=== PATIENT | male | born 1940 | race Caucasian/White ===

== ENCOUNTER → 2016-09-24 | Outpatient (CLI) | payer MEDICARE ==
[~2016-09-24] MED LIST: APIX5TAB PO; ATOR40TA16 PO; CALCTAB80 PO; CARV6.252 PO; FAMO20TA2 PO; FLUT1INH INH; FORT600S SQ; FURO40TA PO; HYDR-3516 PO; ICAPCAP PO; ISOS30TA3 PO; METF1000 PO; NATE120T PO; POTA-163 PO; POTA75TA2 PO; RAMI5CAP PO; TAMS0.4C4 PO; WALKER WHEELS/F1 MIS
[2016-09-24 12:44] LABS: AUTOMATED NEUTROPHIL # 5.7 TH/MM3 (1.8-7.7); BASOPHIL # 0.1 TH/MM3 (0-0.2); BASOPHIL % 0.7 % (0.0-2.0); EOSINOPHIL # 0.1 TH/MM3 (0-0.4); EOSINOPHIL % 1.2 % (0.0-4.0); HEMATOCRIT 43.4 % (39.0-51.0); HEMO FLAGS DIFF FINAL; LYMPH % 16.9 % (9.0-44.0); LYMPHOCYTE # 1.3 TH/MM3 (1.0-4.8); MEAN CELL VOLUME 90.7 FL (80.0-100.0); MEAN CORPUSCULAR HGB CONC 33.1 % (32.0-36.0); MONO % 7.4 % (0.0-8.0); NEUT % 73.8 % (16.0-70.0); PLATELET COUNT 206 TH/MM3 (150-450); RED BLOOD COUNT 4.78 MIL/MM3 (4.50-5.90); RED CELL DISTRIBUTION WIDTH 14.9 % (11.6-17.2); WHITE BLOOD COUNT 7.7 TH/MM3 (4.0-11.0)
[2016-09-24 12:55] LABS: APTT (PATIENT) 28.2 SEC (24.3-30.1); PROTHROMBIN TIME - PATIENT 11.5 SEC (9.8-11.6)
[2016-09-24 13:07] LABS: BLOOD, URINE NEG (NEG); COMMENT (UR) CULT NOT INDICATED; CULTURE IF INDICATED CULT NOT INDICATED; GLUCOSE,URINE NEG (NEG); KETONE, URINE NEG (NEG); NITRITE,URINE NEG (NEG); URINE COLOR YELLOW (YELLW/STRAW)
[2016-09-24 13:21] LABS: ANION GAP 5 MEQ/L (5-15); BICARBONATE 30.1 MEQ/L (21.0-32.0); BLOOD UREA NITROGEN 22 MG/DL (7-18); CHLORIDE 104 MEQ/L (98-107); GLOMERULAR FILTRATION RATE 53 ML/MIN (>89); GLUCOSE,FASTING 146 MG/DL (74-99); POTASSIUM 4.9 MEQ/L (3.5-5.1); SODIUM (NA) 139 MEQ/L (136-145)
--- NOTE | 2016-09-24 13:33 | RADRPT ---
EXAM DATE/TIME: 09/24/2016 12:50 [facility] COMPARISON: No previous studies available for comparison. INDICATIONS : Pre op aortic valve replacement MEDICAL HISTORY : Hypertension. Diabetes mellitus type 2. Aortic valve disorder. A Fib. COPD. Pneumonia. Bilateral kn ee pain. Forehead skin cancer. SURGICAL HISTORY : Circumcision. ENCOUNTER: Initial ACUITY: 1 day PAIN SCORE: 0/10 LOCATION: Bilateral neck. PEAK SYSTOLIC VELOCITIES (cm/sec): ICA/CCA RATIO: Right: 1.2 Left: 1.0 ICA: Right: 59 Left: 62 CCA: Right: 50 Left: 61 ECA: Right: 65 Left: 40 VERTEBRAL: Right: 40 antegrade Left: 31 antegrade Elevated flow velocities and ICA/CCA ratios have been found to correlate with increased degrees of vessel stenosis, calculated as percentage of diameter relative to a normal segment of distal ICA/CCA FINDINGS: RIGHT CAROTID: No significant stenosis is visualized. The waveforms are within normal limits. LEFT CAROTID: No significant stenosis is visualized. The waveforms are within normal limits. VERTEBRAL ARTERIES: Antegrade flow is seen in both vertebral arteries. MISCELLANEOUS: None. CONCLUSION: Normal examination. Owen Tomlin MD on September 24, 2016 at 13:31 Board Certified Radiologist. This report was verified electronically.
--- NOTE | 2016-09-24 13:34 | RADRPT ---
EXAM DATE/TIME: 09/24/2016 13:19 [facility] COMPARISON: No previous studies available for comparison. INDICATIONS : Pre op. To evaluate for pneumonia, pneumothorax, or any comminicable disease. MEDICAL HISTORY : None. SURGICAL HISTORY : None. ENCOUNTER: Initial ACUITY: 1 day PAIN SCORE: 0/10 LOCATION: Bilateral chest FINDINGS: Diffuse bilateral interstitial infiltrates with mild probable pleural parenchymal scarring most notab ly in the left lung base. Possible tiny effusions. Heart size and mediastinal contours are grossly sa tisfactory. There is moderate accentuation of thoracic kyphosis with scoliosis and degenerative pierre es present in the spine. CONCLUSION: Diffuse interstitial infiltrates of undetermined chronicity Owen Tomlin MD on September 24, 2016 at 13:32 Board Certified Radiologist. This report was verified electronically.
[2016-09-24 14:17] LABS: MRSA PCR NEGATIVE (NEGATIVE); STAPH AUREUS PCR NEGATIVE (NEGATIVE)
[2016-09-24 15:39] LABS: HEMOGLOBIN A1b 2.3 %; HEMOGLOBIN Ao 82.1 %; HEMOGLOBIN LA1C 2.8 %; HEMOGLOBIN P3 6.3 %
--- NOTE | 2016-09-30 09:08 | RSPPFT ---
DATE OF PROCEDURE: 09/24/16 COMMENTS: Spirometry with FVC of 3/3, FEV1 of 2.0, FEV1/FVC ratio at 62%. Post-bronchodilator study was not performed. IMPRESSION: 1. Moderate airways obstruction.
== END ==
LOC: CPRE 11:01
PROVIDERS: ATTEND Thoracic Surgery (Cardiothoracic Vascular Surgery)
DX: Z01.810 Encounter for preprocedural cardiovascular examination (principal); Z01.812 Encounter for preprocedural laboratory examination; Z01.811 Encounter for preprocedural respiratory examination; I35.0 Nonrheumatic aortic (valve) stenosis; I50.43 Acute on chronic combined systolic (congestive) and diastolic (congestive) heart failure; E11.9 Type 2 diabetes mellitus without complications
CPT/HCPCS: 36415; 71020; 80048; 81001; 83036; 85025; 85610; 85730; 87640; 87641; 93880; 94010

== ENCOUNTER 2016-09-28 15:48 | Inpatient (IN) | payer MEDICARE ==
[~2016-09-28] VITALS: Ht 177.8 cm; Wt 76.0 kg
[~2016-09-28 15:48] MED LIST changes: -HYDR-3516 PO; -WALKER WHEELS/F1 MIS
[2016-09-29] VITALS (10 sets, daily range): BP systolic 87–153; BP diastolic 59–83; PULSE 79–89; RESP 10–20; TEMP 97.7–97.9; O2SAT 91–100
[2016-09-29] MEDS ORDERED: AMINOCAPROIC ACID INJ 250 MG/ML 20 ML VIAL IV ONE ×2 (05:00→14:14)
[2016-09-29] MEDS ORDERED: HEPARIN SODIUM - SQ 10,000 UNITS/ML VIAL SQ ONE (05:00)
[2016-09-29] MEDS ORDERED: PROTAMINE SULFATE 250 MG/25 ML VIAL IV ONE (05:00)
[2016-09-29] MEDS ORDERED: PHENYLEPHRINE HCL 10 MG/ML VIAL IV ONE (05:00)
[2016-09-29] MEDS ORDERED: DEXMEDETOMIDINE INJ 50 ML IV ONE (05:00)
[2016-09-29] MEDS ORDERED: GLYCOPYRROLATE 0.2 MG/ML VIAL IV ONE (05:00)
[2016-09-29] MEDS ORDERED: ceFAZolin INJ 1,000 MG VIAL IV ONE ×2 (05:00→11:30)
[2016-09-29] MEDS ORDERED: VECURONIUM BROMIDE 10 MG VIAL IV ONE (05:00)
[2016-09-29] MEDS ORDERED: MAGNESIUM SULFATE 1000 MG/2 ML VIAL (PED) IV ONE (05:00)
[2016-09-29] MEDS ORDERED: CEFAZOLIN 500 MG in NS IRR BTL 500 ML IRRIGATION SCH (06:15)
[2016-09-29] MEDS ORDERED: CHLORHEXIDINE GLUCONATE 4% SOLN 120 ML BTL TOPICAL SCH (06:15)
[2016-09-29] MEDS ORDERED: METOPROLOL TARTRATE 25 MG TAB PO PRN (06:15)
[2016-09-29] MEDS ORDERED: INSULIN HUMAN REGULAR 1,000 UNITS/10 ML VIAL SQ PRN (06:15)
[2016-09-29] MEDS ORDERED: SODIUM CHLORIDE 0.9% FLUSH 5 ML FLUSH IV FLUSH PRN ×2 (06:15→12:45)
[2016-09-29] MEDS ORDERED: METOPROLOL TARTRATE 25 MG TAB PO SCH (06:15)
[2016-09-29] MEDS ORDERED: INSULIN REGULAR 100 UNITS in NS 100 ML IV SCH (06:15)
[2016-09-29] MEDS ORDERED: ceFAZolin 2 GM PREMIX 50 ML IV SCH (06:15)
[2016-09-29] MEDS ORDERED: methylPREDNISolone SOD SUCC 125 MG/2 ML VIAL ONE (06:20)
[2016-09-29] MEDS ORDERED: VANCOMYCIN HCL 1000 MG VIAL ONE (06:20)
[2016-09-29] MEDS ORDERED: HEPARIN SODIUM - SQ 10,000 UNITS/ML VIAL ONE (06:20)
[2016-09-29] MEDS ORDERED: BUPIVACAINE HCL PF 0.5% 30 ML VIAL ONE (06:20)
[2016-09-29] MEDS ORDERED: ICAPCAP PO (06:23)
[2016-09-29] MEDS: LACTATED RINGER'S 1000 ML IV SCH (06:34)
[2016-09-29] MEDS ORDERED: METOPROLOL TARTRATE 25 MG TAB PO ONE (07:00)
[2016-09-29] MEDS ORDERED: CUSTODIOL HTK IRR SOLN 2,000 ML ONE (07:03)
[2016-09-29] MEDS ORDERED: CUSTODIOL HTK IRR SOLN 1,000 ML ONE (07:03)
[2016-09-29] MEDS ORDERED: CALCIUM CHLORIDE 10% SOLN 1 GRAM/10 ML SYR ONE (07:04)
[2016-09-29] MEDS ORDERED: HEPARIN SODIUM - IV 10,000 UNITS/10 ML VIAL ONE (07:04)
[2016-09-29] MEDS ORDERED: POTASSIUM CHLORIDE 20 MEQ/10 ML VIAL ONE (07:04)
[2016-09-29] MEDS ORDERED: SODIUM BICARBONATE 8.4% INJ 50 ML ONE (07:05)
[2016-09-29] MEDS ORDERED: MANNITOL INJ 50 ML ONE (07:05)
[2016-09-29] MEDS ORDERED: ALBUMIN HUMAN 25% 12.5 GM/50 ML BAGP IV ONE (07:05)
[2016-09-29] MEDS: SODIUM CHLORID 0.9% 500 ML IV SCH (07:30)
[2016-09-29] MEDS ORDERED: SODIUM CHLORIDE 0.9% FLUSH 5 ML FLUSH IV FLUSH SCH (09:00)
[2016-09-29] MEDS ORDERED: INSULIN REGULAR (IV INFUSION) 100 UNITS in SODIUM CHLORIDE 0.9% INJ 99 ML IV SCH (12:45)
[2016-09-29] MEDS ORDERED: DEXTROSE 50% IN WATER 50 ML VIAL(D50) IV PUSH PRN (12:45)
[2016-09-29] MEDS ORDERED: ONDANSETRON HCL 4 MG/2 ML VIAL IV PUSH PRN (12:45)
[2016-09-29] MEDS ORDERED: CALCIUM CHLORIDE 10% 1 GRAM/10 ML VIAL IV PRN (12:45)
[2016-09-29] MEDS ORDERED: hydrALAZINE HCL 20 MG/ML VIAL IV PRN (12:45)
[2016-09-29] MEDS ORDERED: CLEVIDIPINE INJ 50 ML IV SCH (12:45)
[2016-09-29] MEDS ORDERED: LACTATED RINGER'S 1000 ML INJ 500 ML IV PRN (12:45)
[2016-09-29] MEDS ORDERED: POTASSIUM CHLOR 20 MEQ PREMIX 100 ML IV PRN ×3 (12:45)
[2016-09-29] MEDS ORDERED: ACETAMINOPHEN 650 MG SUPP RECTAL PRN (12:45)
[2016-09-29] MEDS ORDERED: METOPROLOL TARTRATE 5 MG/5 ML VIAL IV PUSH PRN (12:45)
[2016-09-29] MEDS ORDERED: ACETAMINOPHEN 325 MG TAB PO PRN (12:45)
[2016-09-29] MEDS ORDERED: Post-op Orders (for Pharmacy) MISC OTHER ONE (12:45)
[2016-09-29] MEDS ORDERED: MAGNESIUM SULFATE INJ 2 GM in SODIUM CHLORIDE 0.9% INJ 100 ML IV PRN (12:45)
[2016-09-29] MEDS ORDERED: POTASSIUM CHLORIDE 20 MEQ CONTROLLED RELEASE TAB PO PRN ×2 (12:45)
[2016-09-29] MEDS ORDERED: CALCIUM CHLORIDE INJ 1 GM in SODIUM CHLORIDE 0.9% INJ 100 ML IV PRN (12:45)
[2016-09-29] MEDS ORDERED: MIDAZOLAM HCL 5 MG/5 ML VIAL ONE (12:51)
--- NOTE | 2016-09-29 12:51 | PD.OP ---
cc: Jos Garcia MD; Peggy Jackson MD Operative Report Date of Surgery: Sep 29, 2016 Preoperative Diagnosis: (1) Aortic valve stenosis with insufficiency (2) Diastolic CHF due to valvular disease Postoperative Diagnosis: same Procedure: Minimally invasive AVR with a 23 Trifecta tissue valve Left fem-fem cannulation for CPB MARIYA Anesthesia: Dr. Grady Surgeon: Peggy Jackson Director Technical(s): Gaurav Thornton MD Operation and Findings: The risks, benefits, complications, treatment options, and expected outcomes were discussed with the patient. The possibilities of reaction to medication, pulmonary aspiration, perforation of viscus, bleeding, recurrent infection, the need for additional procedures, failure to diagnose a condition, and creating a complication requiring transfusion or operation were discussed with the patient. The patient concurred with the proposed plan, giving informed consent. The site of surgery properly noted/marked. The patient was taken to Operating Room, identified as Arron Rollins, and the procedure verified as Minimally Invasive Aortic Valve Replacement. A Time Out was held and the above information confirmed. Standard monitoring lines and Carrion catheter were placed. General anesthesia was induced. The patient was prepped and draped in a sterile fashion. A 3 cm incision was performed in the left groin and the femoral artery and vein were exposed. The patient was heparinized for cardiopulmonary bypass. The left femoral artery was cannulated with a 17 [employer] arterial cannula. The left femoral vein was cannulated with a 23 [employer] cannula under MARIYA guidance. A 6 cm right anterior thoracotomy was performed and the 3rd rib was shingled. The right internal mammary artery and vein were ligated and divided. An Merlin retractor was placed followed by a small chest retractor. The pericardium was opened and a pericardial sling was created using interrupted 0 silk sutures. A small 1 cm incision was made at the 6th intercostal space and an LV vent and pericardial suction were placed through this access port. The aorta was dissected posteriorly for crossclamp placement. Antegrade Custodiol cardioplegia were employed. Additionally, hand-held coronary cardioplegia cannula was used during the procedure. The patient was placed on cardiopulmonary bypass. An aortic cross-clamp was applied and the heart was arrested using cold blood cardioplegia delivered through a 14F catheter. The aorta was opened above the sinotubular ridge and the aortic valve was exposed. The right and left coronary was directly cannulated in addition and cardioplegia was administered. On opening the aorta, the valve appeared rheumatic with calcified, retracted cusps. The valve was resected as well as all annular calcification, sized for a 23 mm Trifecta tissue valve which was placed with 2-0 pledgeted Tycron valve sutures. The valve seated well. The aorta was closed with running 4-0 Prolene suture. The patient systemically Re warmed and received a hotshot dose of warm blood cardioplegia. The heart was vigorously deaired with a clamp on. The clamp was removed, deairing continued. The patient was easily weaned from cardiopulmonary bypass. Decannulation was carried out without incident and both the femoral vessels were repaired with 5-0 prolene suture. Protamine was given. There was no adverse reaction. Intraoperative MARIYA following the procedure showed a well-seated aortic valve with no perivalvular leak and preserved ventricular function. Wound was checked for hemostasis was obtained using electrocautery. 2-24 Kyrgyz Inocencio drains were positioned in the pericardium and right pleural space respectively and secured with 2-0 silk sutures. The 3rd rib was reapproximated to the sternum and adjacent rib with a 0 Vicryl suture. The fascia and pectoralis were closed with 0 Vicryl. The subcutaneous tissue was closed using a running 3-0 Monocryl suture. The skin was closed with 4-0 Monocryl. The groin was closed in 2 layers. Sterile dressings were placed. At the end of the operation, all sponge, instruments, and needle counts were correct. The patient was transferred to the CVICU in stable condition. Peggy Jackson MD Sep 29, 2016 12:51
[2016-09-29] MEDS ORDERED: fentaNYL CITRATE 1000 MCG/20 ML VIAL ONE (12:52)
[2016-09-29] MEDS ORDERED: RESP: ALBUTEROL 2.5 MG/IPRATROPIUM 0.5 MG NEB (PRN) NEB (13:30)
[2016-09-29] MEDS ORDERED: RESP: RACEPINEPHRINE 2.25% 0.5 ML NEB NEB PRN (13:30)
--- NOTE | 2016-09-29 13:34 | RADRPT ---
EXAM DATE/TIME: 09/29/2016 12:52 [facility] COMPARISON: CHEST PA & LAT, September 24, 2016, 13:19. INDICATIONS : Post Heart valve surgery. MEDICAL HISTORY : None. SURGICAL HISTORY : None. ENCOUNTER: Initial ACUITY: 2 days PAIN SCORE: Non-responsive. LOCATION: Bilateral chest FINDINGS: The cardiac silhouette is enlarged in transverse diameter. There is left lower lobe atelectasis versu s pneumonia. Support lines and tubes are in satisfactory position. There is no evidence of pneumotho rax. CONCLUSION: 1. Left lower lobe atelectasis versus pneumonia. There is no evidence of pneumothorax. Avery Carey MD on September 29, 2016 at 13:32 Board Certified Radiologist. This report was verified electronically.
[2016-09-29] MEDS ORDERED: SODIUM CHLOR 0.9% 250 ML INJ 250 ML IV ONE (14:14)
[2016-09-29] MEDS ORDERED: SODIUM CHLORIDE 0.9% INJ 100 ML IV ONE (14:14)
[2016-09-29] MEDS ORDERED: SODIUM CHLOR 0.9% 1000 ML INJ 1,000 ML IV ONE (14:14)
[2016-09-29] MEDS ORDERED: NORMOSOL R INJ 1,000 ML IV ONE (14:14)
[2016-09-29] MEDS: RESP: ALBUTEROL 2.5 MG/IPRATROPIUM 0.5 MG NEB (SCH) NEB ×2 (15:16→21:03)
[2016-09-29] MEDS: ACETAMINOPHEN 1000 MG/100 ML VIAL IV SCH ×2 (15:53→20:22)
[2016-09-29] MEDS: AMIODARONE 200 MG TAB PO SCH ×2 (15:53→21:59)
[2016-09-29] MEDS ORDERED: MUPIROCIN 2% OINT 1 APPLIC/GM SYR ONE (20:16)
[2016-09-29] MEDS: MUPIROCIN 2% OINT 22 GM TUBE EACH NARE SCH (21:00)
[2016-09-29] MEDS: SODIUM CHLORIDE 0.9% FLUSH 5 ML FLUSH IV FLUSH SCH (21:59)
[2016-09-29] MEDS: TAMSULOSIN HCL 0.4 MG CAP PO SCH (21:59)
[2016-09-29] MEDS: ATORVASTATIN 40 MG TAB PO SCH (21:59)
[2016-09-30] VITALS (14 sets, daily range): BP systolic 125–157; BP diastolic 60–91; PULSE 69–92; RESP 18–22; TEMP 97.1–99.1; O2SAT 92–99
[2016-09-30] MEDS: SODIUM CHLORID 0.9% 500 ML IV SCH (00:10)
[2016-09-30] MEDS: oxyCODONE/ACETAMINOPHEN 5 MG/325 MG TAB PO PRN ×2 (02:16→08:48)
[2016-09-30] MEDS: ACETAMINOPHEN 1000 MG/100 ML VIAL IV SCH ×2 (02:17→08:00)
[2016-09-30] MEDS: RESP: ALBUTEROL 2.5 MG/IPRATROPIUM 0.5 MG NEB (SCH) NEB ×4 (02:28→21:13)
[2016-09-30 04:28] LABS: HEMATOCRIT 40.8 % (39.0-51.0); MEAN CELL VOLUME 89.9 FL (80.0-100.0); MEAN CORPUSCULAR HEMOGLOBIN 29.5 PG (27.0-34.0); MEAN CORPUSCULAR HGB CONC 32.8 % (32.0-36.0); PLATELET COUNT 99 TH/MM3 (150-450); RED BLOOD COUNT 4.54 MIL/MM3 (4.50-5.90); RED CELL DISTRIBUTION WIDTH 14.9 % (11.6-17.2); WHITE BLOOD COUNT 17.4 TH/MM3 (4.0-11.0)
[2016-09-30 05:00] LABS: BICARBONATE 22.8 MEQ/L (21.0-32.0); MAGNESIUM 1.6 MG/DL (1.5-2.5); POTASSIUM 4.1 MEQ/L (3.5-5.1)
[2016-09-30] MEDS: PANTOPRAZOLE SOD 40 MG DELAYED RELEASE TAB PO SCH (05:26)
[2016-09-30] MEDS: AMIODARONE 200 MG TAB PO SCH ×3 (05:27→20:54)
[2016-09-30 05:56] LABS: REVIEW FLAG FINAL
--- NOTE | 2016-09-30 06:22 | RADRPT ---
EXAM DATE/TIME: 09/30/2016 04:44 [facility] COMPARISON: CHEST PA & LAT, September 24, 2016, 13:19. CHEST SINGLE AP, September 29, 2016, 12:52. INDICATIONS : Shortness of breath, possible pulmonary disease. MEDICAL HISTORY : None. SURGICAL HISTORY : None. ENCOUNTER: Subsequent ACUITY: 3 days PAIN SCORE: Non-responsive. LOCATION: Bilateral chest FINDINGS: There has been interval extubation. A left subclavian central catheter remains in place. A right thor acostomy tube is present. There is hazy parenchymal opacity in the left perihilar region and left xavi g base obscuring the left diaphragm. Minimal parenchymal opacity at the right lung base. Cardiac cont ours are grossly stable. CONCLUSION: Interval extubation with slight deterioration in the aeration Owen Tomlin MD on September 30, 2016 at 6:17 Board Certified Radiologist. This report was verified electronically.
[2016-09-30] MEDS: LACTATED RINGER'S 1000 ML IV SCH (07:30)
[2016-09-30] MEDS: ASPIRIN 81 MG CHEW TAB PO SCH ×2 (08:50→09:35)
[2016-09-30] MEDS: MUPIROCIN 2% OINT 22 GM TUBE EACH NARE SCH (08:50)
[2016-09-30] MEDS: FLUTICASONE 100 MCG/VILANTEROL 25 MCG INHALER INH SCH (08:51)
[2016-09-30] MEDS: SODIUM CHLORIDE 0.9% FLUSH 5 ML FLUSH IV FLUSH SCH ×2 (08:51→20:54)
[2016-09-30] MEDS ORDERED: MULTIVITAMINS/MINERALS THERAPEUTIC TAB PO SCH (09:00)
[2016-09-30] MEDS ORDERED: DEXTROSE 50% IN WATER 50 ML VIAL(D50) IV PRN (09:30)
[2016-09-30] MEDS ORDERED: GLUCAGON 1 MG/ML VIAL OTHER PRN (09:30)
[2016-09-30] MEDS ORDERED: BISACODYL EC 5 MG TABEC PO PRN (09:30)
[2016-09-30] MEDS ORDERED: BISACODYL 10 MG SUPP RECTAL PRN (09:30)
[2016-09-30] MEDS ORDERED: SOD PHOSPHATE/SOD BIPHOSPHATE (ADULT) ENEMA 133ML RECTAL PRN (09:30)
--- NOTE | 2016-09-30 09:34 | RADRPT ---
EXAM DATE/TIME: 09/30/2016 08:58 [facility] COMPARISON: CHEST SINGLE AP, September 30, 2016, 4:44. INDICATIONS : Pneumonia. MEDICAL HISTORY : None. SURGICAL HISTORY : heart valve surgery ENCOUNTER: Initial ACUITY: 4 - 6 days PAIN SCORE: 0/10 LOCATION: Bilateral chest FINDINGS: The cardiac silhouette is enlarged in transverse diameter. A left sided subclavian vein catheter is i n place without pneumothorax with its tip in the superior vena cava. A right chest tube is in place w ith its tip directed inferiorly with a right apical pneumothorax without tension. There is subcutaneo us emphysema along the right lateral chest wall. There is bilateral lower lobe atelectasis versus pne umonia. CONCLUSION: 1. Right apical pneumothorax without tension. 2. Bilateral lower lobe atelectasis versus pneumonia. Avery Carey MD on September 30, 2016 at 9:29 Board Certified Radiologist. This report was verified electronically.
[2016-09-30] MEDS: MAGNESIUM SULFATE INJ 2 GM in SODIUM CHLORIDE 0.9% INJ 100 ML IV PRN ×2 (09:35→10:47)
[2016-09-30] MEDS: CARVEDILOL 3.125 MG TAB PO SCH ×2 (09:40→20:54)
[2016-09-30] MEDS: INSULIN ASPART SUPPLEMENTAL SCALE SQ SCH ×4 (10:46→22:00)
[2016-09-30] MEDS ORDERED: traMADol HCL 50 MG TAB PO PRN (11:30)
[2016-09-30] MEDS: MAGNESIUM HYDROXIDE SUSP 30 ML CUP PO PRN (14:20)
--- NOTE | 2016-09-30 15:01 | PD.CAR.PN ---
CVT Progress Note CVT: POD #: 1 Subjective/Hospital Course: 76 male hx of (1) Aortic valve stenosis with insufficiency, (2) Diastolic CHF due to valvular disease, no significant CAD per Heart cath other past medical hx : COPD on inhalers, DM on insulin and oral meds , HTN HLP tobacco abuse, Afib on eliquis at home EF 35-40% surgery: Minimally invasive AVR with a 23 Trifecta tissue valve, Left fem-fem cannulation for CPB, MARIYA 09/29 09/30 extubated post surgery , weaned off insulin gtt no pressors + air leak in +1 / repeat CXR noted has small right apical PTX , sub q emphysema continue chest tube to wall suction ok to transfer to stepdown Objective: GENERAL: SKIN: Warm and dry.incision intact right upper chest wall HEAD: Normocephalic. EYES: No scleral icterus. No injection or drainage. NECK: Supple, trachea midline. No JVD or lymphadenopathy. CARDIOVASCULAR: Regular rate and rhythm without murmurs, gallops, or rubs. RESPIRATORY: chest tube x 2 right upper chest wall in place + air leak / drained 200cc/ 12 hrs Breath sounds equal bilaterally. No accessory muscle use. GASTROINTESTINAL: Abdomen soft, non-tender, nondistended. MUSCULOSKELETAL: No cyanosis, or edema. BACK: Nontender without obvious deformity. No CVA tenderness. Vital Signs Date Time Temp Pulse Resp B/P Pulse Ox O2 Delivery O2 Flow Rate FiO2 09/30/16 12:00 94 Nasal Cannula 4.00 09/30/16 11:00 97.9 76 18 133/70 92 Arterial Line 09/30/16 11:00 76 09/30/16 08:00 94 Nasal Cannula 4.00 09/30/16 07:20 97 Venturi Mask 50 09/30/16 07:00 98.6 80 20 125/80 97 138/67 09/30/16 07:00 80 09/30/16 04:00 95 Venturi Mask 6.00 50 09/30/16 04:00 97.1 84 18 126/79 97 140/60 09/30/16 03:28 87 09/30/16 03:00 18 09/30/16 03:00 18 09/30/16 02:00 140/73 157/70 09/30/16 01:00 145/91 151/72 09/30/16 00:00 98.9 80 22 151/68 95 09/30/16 00:00 96 Venturi Mask 6.00 50 09/29/16 23:35 86 09/29/16 20:00 95 Venturi Mask 6.00 50 09/29/16 20:00 97.9 79 20 144/70 95 09/29/16 19:47 95 Venturi Mask 6.00 50 09/29/16 19:30 82 09/29/16 18:15 95 Venturi Mask 6.00 50 09/29/16 16:00 95 Partial Non-Rebreather 6.00 09/29/16 15:00 97.9 89 19 153/83 93 09/29/16 15:00 89 09/29/16 14:46 91 Simple Mask 10.00 Labs: Laboratory Tests Test 09/30/16 04:15 White Blood Count 17.4 TH/MM3 (4.0-11.0) Red Blood Count 4.54 MIL/MM3 (4.50-5.90) Hemoglobin 13.4 GM/DL (13.0-17.0) Hematocrit 40.8 % (39.0-51.0) Mean Corpuscular Volume 89.9 FL (80.0-100.0) Mean Corpuscular Hemoglobin 29.5 PG (27.0-34.0) Mean Corpuscular Hemoglobin 32.8 % Concent (32.0-36.0) Red Cell Distribution Width 14.9 % (11.6-17.2) Platelet Count 99 TH/MM3 (150-450) Mean Platelet Volume 9.3 FL (7.0-11.0) Sodium Level 139 MEQ/L (136-145) Potassium Level 4.1 MEQ/L (3.5-5.1) Chloride Level 104 MEQ/L (98-107) Carbon Dioxide Level 22.8 MEQ/L (21.0-32.0) Anion Gap 12 MEQ/L (5-15) Blood Urea Nitrogen 19 MG/DL (7-18) Creatinine 0.74 MG/DL (0.60-1.30) Estimat Glomerular Filtration 102 ML/MIN Rate (>89) Random Glucose 119 MG/DL (74-106) Calcium Level 7.9 MG/DL (8.5-10.1) Magnesium Level 1.6 MG/DL (1.5-2.5) Result Diagram: 09/30/16 0415 09/30/16 0415 Telemetry: NSR (1) Aortic valve stenosis with insufficiency (2) S/P AVR (aortic valve replacement) Plan: continue low dose ASA start BB continue chest tube to suction resume nusrat in am / EF 35-40% pulm toileting nebs, ezpap acapella (3) Diastolic CHF due to valvular disease Plan: consider low dose diuretic in am (4) Diabetes mellitus Plan: on insulin sliding scale, start metformin in am HGB aic 6.7 (5) Hyperlipemia Plan: statin (6) Hypertension Plan: restart coreg Mini Bacon Sep 30, 2016 15:01
[2016-09-30] MEDS: oxyCODONE/ACETAMINOPHEN 7.5 MG/325 MG TAB PO PRN ×2 (16:52→21:08)
[2016-09-30] MEDS: ATORVASTATIN 40 MG TAB PO SCH (20:54)
[2016-09-30] MEDS: TAMSULOSIN HCL 0.4 MG CAP PO SCH (20:54)
--- NOTE | 2016-09-30 20:59 | EKG ---
Date Performed: 09/30/2016 Time Performed: 02:41:30 PTAGE: 76 years EKG: Sinus rhythm with PAC(s) Anterolateral T wave changes are nonspecific Borderline ECG NO PREVIOUS TRACING DOCTOR: Jos Garcia Interpretating Date/Time 09/30/2016 20:56:43
[2016-10-01] VITALS (19 sets, daily range): BP systolic 93–137; BP diastolic 60–79; PULSE 65–93; RESP 16–18; TEMP 97–99.1; O2SAT 88–96
[2016-10-01] MEDS: INSULIN ASPART SUPPLEMENTAL SCALE SQ SCH ×5 (04:00→22:09)
[2016-10-01 05:11] LABS: AUTOMATED NEUTROPHIL # 11.5 TH/MM3 (1.8-7.7); BASOPHIL % 0.4 % (0.0-2.0); EOSINOPHIL % 0.2 % (0.0-4.0); HEMATOCRIT 39.6 % (39.0-51.0); LYMPH % 6.3 % (9.0-44.0); LYMPHOCYTE # 0.8 TH/MM3 (1.0-4.8); MEAN CELL VOLUME 90.4 FL (80.0-100.0); MEAN CORPUSCULAR HEMOGLOBIN 29.8 PG (27.0-34.0); MEAN CORPUSCULAR HGB CONC 32.9 % (32.0-36.0); NEUT % 85.1 % (16.0-70.0); PLATELET COUNT 88 TH/MM3 (150-450); RED BLOOD COUNT 4.38 MIL/MM3 (4.50-5.90); RED CELL DISTRIBUTION WIDTH 15.1 % (11.6-17.2); WHITE BLOOD COUNT 13.5 TH/MM3 (4.0-11.0)
[2016-10-01 05:16] LABS: BICARBONATE 29.1 MEQ/L (21.0-32.0); MAGNESIUM 1.9 MG/DL (1.5-2.5); POTASSIUM 4.7 MEQ/L (3.5-5.1)
[2016-10-01 05:23] LABS: HEMO FLAGS AUTO DIFF
[2016-10-01] MEDS: PANTOPRAZOLE SOD 40 MG DELAYED RELEASE TAB PO SCH (06:39)
[2016-10-01] MEDS: AMIODARONE 200 MG TAB PO SCH ×3 (06:39→22:05)
[2016-10-01] MEDS: oxyCODONE/ACETAMINOPHEN 7.5 MG/325 MG TAB PO PRN ×2 (06:39→13:27)
--- NOTE | 2016-10-01 06:54 | RADRPT ---
EXAM DATE/TIME: 10/01/2016 05:02 [facility] COMPARISON: CHEST SINGLE AP, September 30, 2016, 8:58. INDICATIONS : Evaluate for pneumothorax. MEDICAL HISTORY : None. SURGICAL HISTORY : None. ENCOUNTER: Subsequent ACUITY: 1 week PAIN SCORE: Non-responsive. LOCATION: Bilateral chest FINDINGS: Left subclavian line is present with tip overlapping the expected region of the SVC. Extensive subcut aneous emphysema is seen on the right and increased since the prior study. Approximate 1.5 cm right a pical pneumothorax seen. Focal consolidation is not seen. Slight bibasilar atelectasis is seen. CONCLUSION: Small right apical pneumothorax. Pat Howell MD on October 01, 2016 at 6:50 Board Certified Radiologist. This report was verified electronically.
[2016-10-01 07:18] LABS: ACANTHOCYTES OCC (NORMAL); PLATELET ESTIMATE SMEAR LOW (NORMAL); PLATELET MORPHOLOGY NORMAL (NORMAL); SCAN/DIFF AUTO DIFF CONFIRMED
[2016-10-01] MEDS: LACTATED RINGER'S 1000 ML IV SCH (07:30)
[2016-10-01] MEDS: RESP: ALBUTEROL 2.5 MG/IPRATROPIUM 0.5 MG NEB (SCH) NEB ×3 (07:45→20:07)
[2016-10-01] MEDS: POLYETHYLENE GLYCOL 17 GM PKG PO SCH (08:40)
[2016-10-01] MEDS: metFORMIN HCL 500 MG TAB PO SCH ×2 (08:40→22:09)
[2016-10-01] MEDS: FLUTICASONE 100 MCG/VILANTEROL 25 MCG INHALER INH SCH (08:40)
[2016-10-01] MEDS: ASPIRIN 81 MG CHEW TAB PO SCH (08:41)
[2016-10-01] MEDS: MULTIVITAMINS/MINERALS THERAPEUTIC TAB PO SCH (08:41)
[2016-10-01] MEDS: DOCUSATE SODIUM 100 MG CAP PO SCH ×2 (08:41→21:00)
[2016-10-01] MEDS: CARVEDILOL 3.125 MG TAB PO SCH ×2 (08:41→22:04)
[2016-10-01] MEDS: SODIUM CHLORIDE 0.9% FLUSH 5 ML FLUSH IV FLUSH SCH ×2 (08:42→22:05)
--- NOTE | 2016-10-01 10:07 | PD.CAR.PN ---
CVT Progress Note CVT: POD #: 2 Subjective/Hospital Course: 76 male hx of (1) Aortic valve stenosis with insufficiency, (2) Diastolic CHF due to valvular disease, no significant CAD per Heart cath other past medical hx : COPD on inhalers, DM on insulin and oral meds , HTN HLP tobacco abuse, Afib on eliquis at home EF 35-40% surgery: Minimally invasive AVR with a 23 Trifecta tissue valve, Left fem-fem cannulation for CPB, MARIYA 09/29 09/30 extubated post surgery , weaned off insulin gtt no pressors + air leak in +1 / repeat CXR noted has small right apical PTX , sub q emphysema continue chest tube to wall suction ok to transfer to stepdown 10/01 still has + 1 air leak on suction , cxr small 1.5cm right apical PTX now on 4 liters nasal cannula remains in NSR with PAC's pain controlled Objective: Vital Signs Date Time Temp Pulse Resp B/P Pulse Ox O2 Delivery O2 Flow Rate FiO2 10/01/16 08:00 95 Venturi Mask 6.00 10/01/16 07:49 95 Venturi Mask 50 10/01/16 07:00 98.5 93 18 115/74 90 10/01/16 07:00 93 10/01/16 06:00 83 10/01/16 05:00 81 10/01/16 05:00 95 Venturi Mask 6.00 10/01/16 04:40 94 Venturi Mask 6.00 Nasal Cannula 10/01/16 04:35 90 Nasal Cannula 6.00 10/01/16 04:30 88 Nasal Cannula 2.00 10/01/16 04:00 82 10/01/16 04:00 99.1 81 18 135/79 88 10/01/16 03:00 78 10/01/16 02:00 82 10/01/16 01:00 74 10/01/16 00:00 98.2 80 18 137/77 94 10/01/16 00:00 80 10/01/16 00:00 94 Nasal Cannula 2.00 09/30/16 23:00 73 09/30/16 22:05 18 09/30/16 22:00 73 09/30/16 21:13 Nasal Cannula 3.00 09/30/16 21:00 92 09/30/16 20:00 80 09/30/16 20:00 99.1 80 18 131/82 95 09/30/16 19:00 82 09/30/16 16:00 94 Nasal Cannula 4.00 09/30/16 15:00 98.0 69 18 144/86 99 09/30/16 15:00 69 09/30/16 12:00 94 Nasal Cannula 4.00 09/30/16 11:00 97.9 76 18 133/70 92 Arterial Line 09/30/16 11:00 76 Labs: Laboratory Tests Test 10/01/16 04:35 White Blood Count 13.5 TH/MM3 (4.0-11.0) Red Blood Count 4.38 MIL/MM3 (4.50-5.90) Hemoglobin 13.0 GM/DL (13.0-17.0) Hematocrit 39.6 % (39.0-51.0) Mean Corpuscular Volume 90.4 FL (80.0-100.0) Mean Corpuscular Hemoglobin 29.8 PG (27.0-34.0) Mean Corpuscular Hemoglobin 32.9 % Concent (32.0-36.0) Red Cell Distribution Width 15.1 % (11.6-17.2) Platelet Count 88 TH/MM3 (150-450) Mean Platelet Volume 9.5 FL (7.0-11.0) Neutrophils (%) (Auto) 85.1 % (16.0-70.0) Lymphocytes (%) (Auto) 6.3 % (9.0-44.0) Monocytes (%) (Auto) 8.0 % (0.0-8.0) Eosinophils (%) (Auto) 0.2 % (0.0-4.0) Basophils (%) (Auto) 0.4 % (0.0-2.0) Neutrophils # (Auto) 11.5 TH/MM3 (1.8-7.7) Lymphocytes # (Auto) 0.8 TH/MM3 (1.0-4.8) Monocytes # (Auto) 1.1 TH/MM3 (0-0.9) Eosinophils # (Auto) 0.0 TH/MM3 (0-0.4) Basophils # (Auto) 0.0 TH/MM3 (0-0.2) CBC Comment AUTO DIFF Differential Comment AUTO DIFF CONFIRMED Platelet Estimate LOW (NORMAL) Platelet Morphology Comment NORMAL (NORMAL) Acanthocytes OCC (NORMAL) Sodium Level 138 MEQ/L (136-145) Potassium Level 4.7 MEQ/L (3.5-5.1) Chloride Level 103 MEQ/L (98-107) Carbon Dioxide Level 29.1 MEQ/L (21.0-32.0) Anion Gap 6 MEQ/L (5-15) Blood Urea Nitrogen 21 MG/DL (7-18) Creatinine 0.85 MG/DL (0.60-1.30) Estimat Glomerular Filtration 87 ML/MIN (>89) Rate Random Glucose 124 MG/DL (74-106) Calcium Level 7.8 MG/DL (8.5-10.1) Magnesium Level 1.9 MG/DL (1.5-2.5) Result Diagram: 10/01/1643410/01/16434 Telemetry: NSR with PAC's (1) Aortic valve stenosis with insufficiency (2) S/P AVR (aortic valve replacement) Plan: continue low dose ASA start BB continue chest tube to suction recheck CXR in am resume nusrat in am / EF 35-40% pulm toileting nebs, ezpap acapella (3) Diastolic CHF due to valvular disease Plan: consider low dose diuretic in am (4) Diabetes mellitus Plan: on insulin sliding scale, metformin HGB aic 6.7 (5) Hyperlipemia Plan: statin (6) Hypertension Plan: coreg (7) hx afib Plan: restart eliquis when chest tube out Mini Bacon Oct 01, 2016 10:07
--- NOTE | 2016-10-01 10:12 | HHI.FF ---
Face to Face Verification Diagnosis: (1) Aortic valve stenosis with insufficiency (2) S/P AVR (aortic valve replacement) (3) Diastolic CHF due to valvular disease (4) hx afib (5) Hypertension (6) Hyperlipemia (7) Diabetes mellitus Home Health Nursing Order: Signs/symptoms of disease process Wound care and dressing changes Nursing assessment with vital signs Instructions: Heart and Vascular Surgery patients *Special attention to sternal dressing Mandatory frequency Assess and evaluation, 4 days in a row The next week 3X week 2 times a week for 4 weeks 1 time a week for 5 weeks Schedule Heart and Vascular patients for full 60 day certification period Initial visit Review Open Heart Surgery Discharge Instructions (Sternal precautions, Activity, Elastic hose, Incision care, Driving, Incentive spirometry, Smoking, [place], Work and other) Need Betadine to paint incision Medication reconciliation Importance of follow up care/ check on appointments Make calendar record temperature daily When to call [facility] nurse, review instructions, phone list Incentive Spirometry, demonstration Visit 1- Begin discharge instruction for patient family and/ or caregiver using teach back method- Signs and symptoms of infection Disease characteristics Medicines and side effects Foods and nutrition/ appetite Infection control/ hand washing/ hygiene Visit 2- Continue teaching Discharge instructions- include additional information on smoking cessation , sternal dressing (sternal vac) Visit 3- Continue teaching- Cough and deep breathing, incision monitoring. Choose my plate Visit 4- Continue teaching- Discuss limitations Discuss how they are feeling Discuss progress toward goals Remaining visits- continue teaching and monitoring Incentive spirometry Q1 hr x 10, while awake, also use acapella device hourly whole awake Sternal Breast Bone Precautions: NO pushing or pulling, ( pt must use sternal pillow to support chest with all activities and with coughing ( takes up to 3 months breast bone to heal ) All females to wear sternal bra , launder as needed Daily incision care: ok to shower daily, no tub bath. Wash all incisions with liquid dial soap, clean wash cloth to each site, rinse and pat dry. Observe for any signs of infection, such as drainage which is dark yellow, aleman, green or foul smelling. Immediately report to the surgeon any drainage from the chest incision, or legs, and for any abnormal drainage from the chest tube sites. Notify surgeon if any temp >101.5 degrees F. When specialty dressing removed/ or if you do not have one, continue to shower daily as above, then rinse and pat incision dry and paint with betadine daily x 5 days. Allow steri strips to fall off if you have any. Avoid lotions, creams, salves, oils, etc. for the first month Please see attached forms for additional instructions regarding post Open Heart specialty wound vacuum dressings. PARISH or Prevena , Dressing to be removed by Nursing staff on For Dr. Jackson patients , please obtain CBC, BMP, PA & Lat CXR in 2 weeks, results to Dr. Jackson ( prescription will be given) ( ) (Tele: [phone]) , Valve replacement pts will need 2decho in 2 weeks with results to Dr. Jackson . Please obtain 2 d echo at your cigarette making machine operator office if possible F/U appointment: as per DC instructions: PCP in 2 weeks, CV surgeon 2 weeks, Chemistry Instructor 3-4 weeks For any questions regarding incisions/ dressing / meds / post op care or above Symptoms, Tuesday 8am-5pm Heart & Vascular Surgery Office ( Dr. Thornton & Dr. Jackson), After Hours / Nights (5pm -8am) Weekends and Holidays Please call [facility] Card[facility] ([facility]) Charge Nurse I have seen patient Arron Rollins on 10/01/16. My clinical findings support the need for the requested home health care services because: Patient has SOB Deconditioned w/ increased weakness I certify that my clinical findings support that this patient is homebound because: Post-op weakness Mini Bacon Oct 01, 2016 10:12
[2016-10-01] MEDS: MAGNESIUM HYDROXIDE SUSP 30 ML CUP PO PRN (18:42)
[2016-10-01] MEDS: TAMSULOSIN HCL 0.4 MG CAP PO SCH (21:00)
[2016-10-01] MEDS: ATORVASTATIN 40 MG TAB PO SCH (22:04)
[2016-10-02] VITALS (20 sets, daily range): BP systolic 90–151; BP diastolic 51–67; PULSE 55–87; RESP 18–20; TEMP 97.2–98.2; O2SAT 90–97
--- NOTE | 2016-10-02 04:00 | RADRPT ---
EXAM DATE/TIME: 10/02/2016 02:53 [facility] COMPARISON: CHEST PA & LAT, September 24, 2016, 13:19. CHEST SINGLE AP, October 01, 2016, 5:02. INDICATIONS : Shortness of breath, possible pulmonary disease. MEDICAL HISTORY : Hypertension. Diabetes mellitus type II. Chronic obstructive pulmonary disease. A-Fib SURGICAL HISTORY : None. ENCOUNTER: Subsequent ACUITY: 1 week PAIN SCORE: Non-responsive. LOCATION: Bilateral chest FINDINGS: Left subclavian catheter tip remains projected at the origin of the superior vena cava. Persistent d iffuse subcutaneous emphysema about the supraclavicular and right lateral chest wall. No focal infil trates seen in either lung. Right suprahilar opacity similar to prior. No definite evidence of pneu mothorax on today's film. The heart is upper limits normal size. Central bronchopulmonary markings are from. CONCLUSION: 1. Interval resolution of right apical pneumothorax. 2. Stable right suprahilar and infrahilar opacities. Frank Cuevas MD on October 02, 2016 at 3:55 Board Certified Radiologist. This report was verified electronically.
[2016-10-02] MEDS: AMIODARONE 200 MG TAB PO SCH ×3 (06:00→21:11)
[2016-10-02] MEDS: INSULIN ASPART SUPPLEMENTAL SCALE SQ SCH ×4 (06:18→21:10)
[2016-10-02] MEDS: PANTOPRAZOLE SOD 40 MG DELAYED RELEASE TAB PO SCH (06:19)
[2016-10-02] MEDS: RESP: ALBUTEROL 2.5 MG/IPRATROPIUM 0.5 MG NEB (SCH) NEB (08:10)
[2016-10-02] MEDS: FLUTICASONE 100 MCG/VILANTEROL 25 MCG INHALER INH SCH (08:31)
[2016-10-02] MEDS: MULTIVITAMINS/MINERALS THERAPEUTIC TAB PO SCH (08:31)
[2016-10-02] MEDS: POLYETHYLENE GLYCOL 17 GM PKG PO SCH (08:31)
[2016-10-02] MEDS: SODIUM CHLORIDE 0.9% FLUSH 5 ML FLUSH IV FLUSH SCH ×2 (08:31→21:08)
--- NOTE | 2016-10-02 08:31 | PD.CAR.PN ---
CVT Progress Note Subjective/Hospital Course: 76 male hx of (1) Aortic valve stenosis with insufficiency, (2) Diastolic CHF due to valvular disease, no significant CAD per Heart cath other past medical hx : COPD on inhalers, DM on insulin and oral meds , HTN HLP tobacco abuse, Afib on eliquis at home EF 35-40% surgery: Minimally invasive AVR with a 23 Trifecta tissue valve, Left fem-fem cannulation for CPB, MARIYA 09/29 09/30 extubated post surgery , weaned off insulin gtt no pressors + air leak in +1 / repeat CXR noted has small right apical PTX , sub q emphysema continue chest tube to wall suction ok to transfer to stepdown 10/01 still has + 1 air leak on suction , cxr small 1.5cm right apical PTX now on 4 liters nasal cannula remains in NSR with PAC's pain controlled 10/02 CT still draining Crepitus better today.CXR looks improved Likely D/C CT tomorrow Discharge planning Objective: Vital Signs Date Time Temp Pulse Resp B/P Pulse Ox O2 Delivery O2 Flow Rate FiO2 10/02/16 08:12 95 21 10/02/16 04:18 96 Room Air 10/02/16 03:00 98.2 79 18 94/63 96 10/02/16 03:00 68 10/02/16 00:00 93 Room Air 10/01/16 23:00 97.8 69 18 94/63 96 10/01/16 23:00 69 10/01/16 20:07 Nasal Cannula 2.00 10/01/16 20:00 96 Nasal Cannula 2.00 10/01/16 19:00 69 10/01/16 19:00 97.8 69 18 93/63 96 10/01/16 18:00 65 10/01/16 17:00 70 10/01/16 16:00 72 10/01/16 15:00 96 Nasal Cannula 3.00 10/01/16 15:00 97.0 70 16 96/60 96 10/01/16 14:00 68 10/01/16 13:00 76 10/01/16 12:00 76 10/01/16 11:32 92 Nasal Cannula 3.00 10/01/16 11:32 73 10/01/16 11:32 97.7 73 16 105/64 92 Result Diagram: 10/01/16 0435 10/01/16 0435 (1) Aortic valve stenosis with insufficiency (2) S/P AVR (aortic valve replacement) Plan: continue low dose ASA start BB continue chest tube to suction recheck CXR in am resume nusrat in am / EF 35-40% pulm toileting nebs, ezpap acapella (3) Diastolic CHF due to valvular disease Plan: consider low dose diuretic in am (4) Diabetes mellitus Plan: on insulin sliding scale, metformin HGB aic 6.7 (5) Hyperlipemia Plan: statin (6) Hypertension Plan: coreg (7) hx afib Plan: restart eliquis when chest tube out Gaurav Thornton MD Oct 02, 2016 08:31
[2016-10-02] MEDS: DOCUSATE SODIUM 100 MG CAP PO SCH ×2 (08:32→21:14)
[2016-10-02] MEDS: ASPIRIN 81 MG CHEW TAB PO SCH (08:32)
[2016-10-02] MEDS: CARVEDILOL 3.125 MG TAB PO SCH ×2 (08:32→21:00)
[2016-10-02] MEDS: metFORMIN HCL 500 MG TAB PO SCH ×2 (08:33→17:28)
[2016-10-02] MEDS: oxyCODONE/ACETAMINOPHEN 7.5 MG/325 MG TAB PO PRN ×2 (08:54→17:28)
[2016-10-02] MEDS: RAMIPRIL 2.5 MG CAP PO SCH (13:04)
[2016-10-02] MEDS: TAMSULOSIN HCL 0.4 MG CAP PO SCH (21:00)
[2016-10-02] MEDS: ATORVASTATIN 40 MG TAB PO SCH (21:08)
[2016-10-03] VITALS (28 sets, daily range): BP systolic 117–141; BP diastolic 58–68; PULSE 48–62; RESP 18–19; TEMP 97.5–98.2; O2SAT 93–94
[2016-10-03] MEDS: INSULIN ASPART SUPPLEMENTAL SCALE SQ SCH ×4 (06:44→21:00)
[2016-10-03] MEDS: AMIODARONE 200 MG TAB PO SCH ×3 (06:44→22:45)
[2016-10-03] MEDS: PANTOPRAZOLE SOD 40 MG DELAYED RELEASE TAB PO SCH (06:44)
[2016-10-03] MEDS: LACTATED RINGER'S 1000 ML IV SCH (07:30)
[2016-10-03] MEDS: SODIUM CHLORIDE 0.9% FLUSH 5 ML FLUSH IV FLUSH SCH ×2 (09:00→21:04)
[2016-10-03] MEDS: RAMIPRIL 2.5 MG CAP PO SCH (09:37)
[2016-10-03] MEDS: FLUTICASONE 100 MCG/VILANTEROL 25 MCG INHALER INH SCH (09:37)
[2016-10-03] MEDS: POLYETHYLENE GLYCOL 17 GM PKG PO SCH (09:38)
[2016-10-03] MEDS: DOCUSATE SODIUM 100 MG CAP PO SCH ×2 (09:40→21:00)
[2016-10-03] MEDS: MULTIVITAMINS/MINERALS THERAPEUTIC TAB PO SCH (09:40)
[2016-10-03] MEDS: ASPIRIN 81 MG CHEW TAB PO SCH (09:40)
[2016-10-03] MEDS: metFORMIN HCL 500 MG TAB PO SCH ×2 (09:40→17:47)
[2016-10-03] MEDS: CARVEDILOL 3.125 MG TAB PO SCH ×2 (09:41→21:03)
[2016-10-03] MEDS: oxyCODONE/ACETAMINOPHEN 7.5 MG/325 MG TAB PO PRN ×2 (10:33→19:41)
--- NOTE | 2016-10-03 10:34 | PD.CAR.PN ---
CVT Progress Note Subjective/Hospital Course: 76 male hx of (1) Aortic valve stenosis with insufficiency, (2) Diastolic CHF due to valvular disease, no significant CAD per Heart cath other past medical hx : COPD on inhalers, DM on insulin and oral meds , HTN HLP tobacco abuse, Afib on eliquis at home EF 35-40% surgery: Minimally invasive AVR with a 23 Trifecta tissue valve, Left fem-fem cannulation for CPB, MARIYA 09/29 09/30 extubated post surgery , weaned off insulin gtt no pressors + air leak in +1 / repeat CXR noted has small right apical PTX , sub q emphysema continue chest tube to wall suction ok to transfer to stepdown 10/01 still has + 1 air leak on suction , cxr small 1.5cm right apical PTX now on 4 liters nasal cannula remains in NSR with PAC's pain controlled 10/02 CT still draining Crepitus better today.CXR looks improved Likely D/C CT tomorrow Discharge planning 10/03 Large air-leak with copious drainage around the CT Placed a purse-string suture around the CT. Check CXR in am. If no PTX, D/C CT Objective: Vital Signs Date Time Temp Pulse Resp B/P Pulse Ox O2 Delivery O2 Flow Rate FiO2 10/03/16 07:49 94 21 10/03/16 06:19 52 10/03/16 05:00 53 10/03/16 04:00 98.0 52 18 126/68 94 10/03/16 04:00 53 10/03/16 04:00 94 Room Air 10/03/16 03:00 53 10/03/16 02:00 52 10/03/16 01:00 54 10/03/16 00:00 94 Room Air 10/03/16 00:00 54 10/03/16 00:00 98.0 56 18 121/64 94 10/02/16 23:00 57 10/02/16 22:00 55 10/02/16 21:00 57 10/02/16 20:00 94 Room Air 10/02/16 20:00 97.9 59 20 96/51 93 10/02/16 20:00 58 10/02/16 19:00 62 10/02/16 18:26 58 10/02/16 17:02 97 21 10/02/16 17:00 63 10/02/16 16:00 60 10/02/16 15:00 94 Room Air 10/02/16 15:00 97.8 61 20 90/59 90 10/02/16 14:00 61 10/02/16 13:00 66 10/02/16 12:29 66 10/02/16 11:00 97.2 66 20 111/67 94 10/02/16 11:00 91 Room Air Result Diagram: 10/01/16 0435 10/01/16 0435 (1) Aortic valve stenosis with insufficiency (2) S/P AVR (aortic valve replacement) Plan: continue low dose ASA start BB continue chest tube to suction recheck CXR in am resume nusrat in am / EF 35-40% pulm toileting nebs, ezpap acapella (3) Diastolic CHF due to valvular disease Plan: consider low dose diuretic in am (4) Diabetes mellitus Plan: on insulin sliding scale, metformin HGB aic 6.7 (5) Hyperlipemia Plan: statin (6) Hypertension Plan: coreg (7) hx afib Plan: restart eliquis when chest tube out Gaurav Thornton MD Oct 03, 2016 10:34
[2016-10-03] MEDS: ATORVASTATIN 40 MG TAB PO SCH (21:03)
[2016-10-03] MEDS: TAMSULOSIN HCL 0.4 MG CAP PO SCH (21:04)
[2016-10-04] VITALS (26 sets, daily range): BP systolic 95–121; BP diastolic 51–68; PULSE 51–68; RESP 18–24; TEMP 97.8–98.8; O2SAT 92–95
[2016-10-04] MEDS: oxyCODONE/ACETAMINOPHEN 7.5 MG/325 MG TAB PO PRN ×2 (04:33→14:17)
[2016-10-04] MEDS: PANTOPRAZOLE SOD 40 MG DELAYED RELEASE TAB PO SCH (06:35)
[2016-10-04] MEDS: AMIODARONE 200 MG TAB PO SCH ×2 (06:35→22:25)
[2016-10-04] MEDS: INSULIN ASPART SUPPLEMENTAL SCALE SQ SCH ×4 (06:35→21:00)
[2016-10-04] MEDS: LACTATED RINGER'S 1000 ML IV SCH (07:30)
[2016-10-04] MEDS: POLYETHYLENE GLYCOL 17 GM PKG PO SCH (09:00)
[2016-10-04] MEDS: metFORMIN HCL 500 MG TAB PO SCH ×2 (10:31→18:51)
[2016-10-04] MEDS: CARVEDILOL 3.125 MG TAB PO SCH ×2 (10:32→22:25)
[2016-10-04] MEDS: MULTIVITAMINS/MINERALS THERAPEUTIC TAB PO SCH (10:32)
[2016-10-04] MEDS: ASPIRIN 81 MG CHEW TAB PO SCH (10:32)
[2016-10-04] MEDS: DOCUSATE SODIUM 100 MG CAP PO SCH ×2 (10:34→22:24)
[2016-10-04] MEDS: FLUTICASONE 100 MCG/VILANTEROL 25 MCG INHALER INH SCH (10:35)
--- NOTE | 2016-10-04 11:55 | RADRPT ---
EXAM DATE/TIME: 10/04/2016 11:24 [facility] COMPARISON: CHEST SINGLE AP, October 02, 2016, 2:53. INDICATIONS : PTX,air leak MEDICAL HISTORY : None. SURGICAL HISTORY : None. ENCOUNTER: Subsequent ACUITY: 4 - 6 days PAIN SCORE: 0/10 LOCATION: Bilateral chest FINDINGS: Relative to the prior examination there is again noted the extensive right chest subcutaneous emphyse ma which is more prominent with a chest tube in place in the right lung base region. No definite evid ence of pulmonary consolidation is appreciated and probably parenchymal markings are noted in the rig ht lung without hyperexpansion or volume loss and a clear left lung. There has been removal of the le ft subclavian venous catheter CONCLUSION: Removal left subclavian venous catheter. Extensive right chest subcutaneous emphysema. Right chest tu be in place. Sergo Hammond MD on October 04, 2016 at 11:52 Board Certified Radiologist. This report was verified electronically.
--- NOTE | 2016-10-04 13:35 | PD.CAR.PN ---
CVT Progress Note Subjective/Hospital Course: 76 male hx of (1) Aortic valve stenosis with insufficiency, (2) Diastolic CHF due to valvular disease, no significant CAD per Heart cath other past medical hx : COPD on inhalers, DM on insulin and oral meds , HTN HLP tobacco abuse, Afib on eliquis at home EF 35-40% surgery: Minimally invasive AVR with a 23 Trifecta tissue valve, Left fem-fem cannulation for CPB, MARIYA 09/29 09/30 extubated post surgery , weaned off insulin gtt no pressors + air leak in +1 / repeat CXR noted has small right apical PTX , sub q emphysema continue chest tube to wall suction ok to transfer to stepdown 10/01 still has + 1 air leak on suction , cxr small 1.5cm right apical PTX now on 4 liters nasal cannula remains in NSR with PAC's pain controlled 10/02 CT still draining Crepitus better today.CXR looks improved Likely D/C CT tomorrow Discharge planning 10/03 Large air-leak with copious drainage around the CT Placed a purse-string suture around the CT. Check CXR in am. If no PTX, D/C CT 10/04 still had sub q air right upper chest neck , and right arm lateral chest tube removed, no further air leak remaining chest tube to water seal, f/u CXR in am on room air Objective: GENERAL: SKIN: Warm and dry./ right upper chest wall incision intact / well approximated HEAD: Normocephalic. EYES: No scleral icterus. No injection or drainage. NECK: Supple, trachea midline. No JVD or lymphadenopathy. CARDIOVASCULAR: Regular rate and rhythm without murmurs, gallops, or rubs. RESPIRATORY: Breath sounds equal bilaterally. No accessory muscle use. chest tube to water seal, no further air leak + sub emphysema GASTROINTESTINAL: Abdomen soft, non-tender, nondistended. MUSCULOSKELETAL: No cyanosis, or edema. BACK: Nontender without obvious deformity. No CVA tenderness. Vital Signs Date Time Temp Pulse Resp B/P Pulse Ox O2 Delivery O2 Flow Rate FiO2 10/04/16 12:00 93 Room Air 10/04/16 12:00 97.8 60 18 99/55 93 10/04/16 12:00 60 10/04/16 09:35 92 21 10/04/16 07:44 94 Blow By 10/04/16 07:44 62 10/04/16 07:44 98.0 62 18 111/62 94 10/04/16 06:11 58 10/04/16 06:00 58 10/04/16 05:00 62 10/04/16 04:00 98.0 60 18 121/68 95 10/04/16 04:00 60 10/04/16 04:00 95 Room Air 10/04/16 03:15 59 10/04/16 02:00 56 10/04/16 01:01 55 10/04/16 00:00 55 10/04/16 00:00 95 Room Air 10/04/16 00:00 98.0 55 18 120/64 95 10/03/16 23:00 55 10/03/16 22:00 57 10/03/16 21:00 58 10/03/16 20:02 21 10/03/16 20:00 59 10/03/16 20:00 94 Room Air 10/03/16 19:42 98.0 61 18 141/67 94 10/03/16 19:00 58 10/03/16 18:00 56 10/03/16 17:00 55 10/03/16 16:00 94 Room Air 10/03/16 16:00 54 10/03/16 15:05 97.5 62 19 135/61 10/03/16 15:00 51 10/03/16 14:00 51 Result Diagram: 10/01/1643410/01/16434 Telemetry: NSR (1) Aortic valve stenosis with insufficiency (2) S/P AVR (aortic valve replacement) Plan: low dose ASA chest tube to water seal recheck CXR in am resume nusrat in am / EF 35-40% pulm toileting nebs, ezpap acapella (3) Diastolic CHF due to valvular disease Plan: consider low dose diuretic in am (4) Diabetes mellitus Plan: on insulin sliding scale, metformin HGB aic 6.7 (5) Hyperlipemia Plan: statin (6) Hypertension Plan: coreg (7) hx afib Plan: restart eliquis when chest tube out Mini Bacon Oct 04, 2016 13:35
[2016-10-04] MEDS: SODIUM CHLORIDE 0.9% FLUSH 5 ML FLUSH IV FLUSH SCH (22:25)
[2016-10-04] MEDS: TAMSULOSIN HCL 0.4 MG CAP PO SCH (22:25)
[2016-10-04] MEDS: ATORVASTATIN 40 MG TAB PO SCH (22:25)
[2016-10-05] VITALS (21 sets, daily range): BP systolic 86–132; BP diastolic 57–71; PULSE 53–85; RESP 18–24; TEMP 98.1–98.9; O2SAT 88–95
[2016-10-05] MEDS: oxyCODONE/ACETAMINOPHEN 7.5 MG/325 MG TAB PO PRN (00:56)
[2016-10-05] MEDS: PANTOPRAZOLE SOD 40 MG DELAYED RELEASE TAB PO SCH (06:30)
[2016-10-05] MEDS: INSULIN ASPART SUPPLEMENTAL SCALE SQ SCH ×4 (06:32→21:02)
--- NOTE | 2016-10-05 06:54 | RADRPT ---
EXAM DATE/TIME: 10/05/2016 06:28 [facility] COMPARISON: CHEST SINGLE AP, October 04, 2016, 11:24. INDICATIONS : Pneumothorax. MEDICAL HISTORY : None. SURGICAL HISTORY : None. ENCOUNTER: Subsequent ACUITY: 1 week PAIN SCORE: 0/10 LOCATION: Bilateral chest FINDINGS: The right chest tube remains in place. No definite pneumothorax. There continues to be some bibasilar atelectasis. There is subcutaneous emphysema along the right and left chest vee, right greater melani n left. These findings are not significantly changed compared to the prior study. The heart size is s table. No significant pleural effusions. CONCLUSION: No evidence of pneumothorax. No significant change compared to the prior exam. Pb Max MD on October 05, 2016 at 6:51 Board Certified Radiologist. This report was verified electronically.
[2016-10-05] MEDS: LACTATED RINGER'S 1000 ML IV SCH (07:30)
[2016-10-05] MEDS: POLYETHYLENE GLYCOL 17 GM PKG PO SCH (09:00)
[2016-10-05] MEDS: DOCUSATE SODIUM 100 MG CAP PO SCH ×2 (10:18→21:02)
[2016-10-05] MEDS: CARVEDILOL 3.125 MG TAB PO SCH ×2 (10:18→21:02)
[2016-10-05] MEDS: ASPIRIN 81 MG CHEW TAB PO SCH (10:18)
[2016-10-05] MEDS: AMIODARONE 200 MG TAB PO SCH ×2 (10:18→21:02)
[2016-10-05] MEDS: FLUTICASONE 100 MCG/VILANTEROL 25 MCG INHALER INH SCH (10:19)
[2016-10-05] MEDS: SODIUM CHLORIDE 0.9% FLUSH 5 ML FLUSH IV FLUSH SCH ×2 (10:19→21:03)
[2016-10-05] MEDS: metFORMIN HCL 500 MG TAB PO SCH ×2 (10:19→18:46)
[2016-10-05] MEDS: MULTIVITAMINS/MINERALS THERAPEUTIC TAB PO SCH (10:20)
--- NOTE | 2016-10-05 10:38 | PD.CAR.PN ---
CVT Progress Note CVT: POD #: 6 Subjective/Hospital Course: 76 male hx of (1) Aortic valve stenosis with insufficiency, (2) Diastolic CHF due to valvular disease, no significant CAD per Heart cath other past medical hx : COPD on inhalers, DM on insulin and oral meds , HTN HLP tobacco abuse, Afib on eliquis at home EF 35-40% surgery: Minimally invasive AVR with a 23 Trifecta tissue valve, Left fem-fem cannulation for CPB, MARIYA 09/29 09/30 extubated post surgery , weaned off insulin gtt no pressors + air leak in +1 / repeat CXR noted has small right apical PTX , sub q emphysema continue chest tube to wall suction ok to transfer to stepdown 10/01 still has + 1 air leak on suction , cxr small 1.5cm right apical PTX now on 4 liters nasal cannula remains in NSR with PAC's pain controlled 10/02 CT still draining Crepitus better today.CXR looks improved Likely D/C CT tomorrow Discharge planning 10/03 Large air-leak with copious drainage around the CT Placed a purse-string suture around the CT. Check CXR in am. If no PTX, D/C CT 10/04 still had sub q air right upper chest neck , and right arm lateral chest tube removed, no further air leak remaining chest tube to water seal, f/u CXR in am on room air 10/05 worsening sub q air black dot noted on chest tube insertion site ( chest tube has migrated out) to cause worsening sub q air, Dr Manuel adams CXR chest tube dc, vaseline gauze applied / air tight dressing repeat CXR pending Objective: GENERAL: sub q emphysema both sides of neck, right chest and arm SKIN: Warm and dry. HEAD: Normocephalic. EYES: No scleral icterus. No injection or drainage. NECK: Supple, trachea midline. No JVD or lymphadenopathy. CARDIOVASCULAR: Regular rate and rhythm without murmurs, gallops, or rubs. RESPIRATORY: Breath sounds equal bilaterally. No accessory muscle use. chest tube removed GASTROINTESTINAL: Abdomen soft, non-tender, nondistended. MUSCULOSKELETAL: No cyanosis, or edema. BACK: Nontender without obvious deformity. No CVA tenderness. Vital Signs Date Time Temp Pulse Resp B/P Pulse Ox O2 Delivery O2 Flow Rate FiO2 10/05/16 08:11 95 10/05/16 07:50 53 10/05/16 07:50 94 Room Air 10/05/16 05:00 59 10/05/16 04:00 93 Nasal Cannula 3.00 10/05/16 04:00 98.2 67 24 109/59 88 10/05/16 04:00 67 10/05/16 03:00 60 10/05/16 02:00 60 10/05/16 01:00 59 10/05/16 01:00 60 10/05/16 00:00 59 10/05/16 00:00 98.1 62 24 132/71 92 10/05/16 00:00 62 10/05/16 00:00 93 Room Air 10/04/16 23:00 61 10/04/16 22:00 60 10/04/16 21:00 61 10/04/16 20:00 97.9 68 24 107/56 94 10/04/16 20:00 68 10/04/16 20:00 94 Room Air 10/04/16 18:00 58 10/04/16 17:00 51 10/04/16 16:00 53 10/04/16 15:50 93 Room Air 10/04/16 15:50 98.8 56 18 95/51 93 10/04/16 15:00 55 10/04/16 14:00 56 10/04/16 13:00 60 10/04/16 12:00 93 Room Air 10/04/16 12:00 97.8 60 18 99/55 93 10/04/16 12:00 60 10/04/16 11:00 61 Result Diagram: 10/01/165 10/01/16 0435 Telemetry: NSR (1) Aortic valve stenosis with insufficiency (2) S/P AVR (aortic valve replacement) Plan: low dose ASA chest tube dc recheck CXR today post removal / EF 35-40% pulm toileting nebs, ezpap acapella (3) Diastolic CHF due to valvular disease Plan: consider low dose diuretic in am (4) Diabetes mellitus Plan: on insulin sliding scale, metformin HGB aic 6.7 (5) Hyperlipemia Plan: statin (6) Hypertension Plan: coreg (7) hx afib Plan: restart eliquis when chest tube out Mini Bacon Oct 05, 2016 10:38
[2016-10-05] MEDS: RAMIPRIL 2.5 MG CAP PO SCH (11:05)
--- NOTE | 2016-10-05 11:33 | RADRPT ---
EXAM DATE/TIME: 10/05/2016 10:52 [facility] COMPARISON: CHEST SINGLE AP, October 04, 2016, 11:24. CHEST SINGLE AP, October 05, 2016, 6:28. INDICATIONS : Chest tube removal. MEDICAL HISTORY : Pneumothorax. SURGICAL HISTORY : Aortic valve replacement. ENCOUNTER: Subsequent ACUITY: 1 day PAIN SCORE: 0/10 LOCATION: Bilateral chest FINDINGS: Upright portable AP view of the chest demonstrates a normal-sized cardiac silhouette. Plate and screw s overlie the right chest and mediastinum. The right chest tube has been removed and no right sided p neumothorax is visualized. There is questionable trace pleural air at the apex of the left hemithorax , not visualized previously. There is a left chest wall soft tissue air, increased from the prior janeth dy. The right chest wall and bilateral supraclavicular soft tissue air is relatively stable. There ar e bibasilar airspace opacities that may represent atelectasis. No definite effusion is seen. CONCLUSION: 1. Right chest tube has been removed and no right pneumothorax is visualized. 2. Questionable tiny left apical pneumothorax, not seen previously. This may not represent a true fin ding given the extensive overlying soft tissue air. Consider attention to this at followup imaging. 3. Extensive chest wall and supraclavicular region soft tissue air. The left chest wall soft tissue a ir has increased from the prior examinations. 4. Bibasilar airspace opacity is stable and likely represents atelectasis. Findings were relayed to the patient's nurse at 11: 30 AM. Owen Teran MD on October 05, 2016 at 11:26 Board Certified Radiologist. This report was verified electronically.
--- NOTE | 2016-10-05 16:13 | RADRPT ---
EXAM DATE/TIME: 10/05/2016 15:38 [place] Corrected on: October 05, 2016; [facility] COMPARISON: No previous studies available for comparison. INDICATIONS : Status-post cardiac surgery valve replacement; evaluate for subcutaneous air and possible chest tube placement. RADIATION DOSE: 6.11 CTDIvol (mGy) MEDICAL HISTORY : Chronic obstructive pulmonary disease. Hypertension. SURGICAL HISTORY : Cardiac valve replacement. ENCOUNTER: Initial ACUITY: 4 - 6 days PAIN SCALE: 6/10 LOCATION: chest TECHNIQUE: Volumetric scanning of the chest was performed. Using automated exposure control and adjustment of t he mA and/or kV according to patient size, radiation dose was kept as low as reasonably achievable to obtain optimal diagnostic quality images. FINDINGS: LUNGS: There is subpleural parenchymal opacity in the right upper lobe as well as atelectasis at the lung ba ses bilaterally with possible mild left lung base air space consolidation. There are small bilateral pleural effusions. A very small right pneumothorax is present. No definite left pleural air is visual ized. There is mild centrilobular emphysema. PLEURAE: There are small bilateral pleural effusions bilaterally without associated pleural thickening. MEDIASTINUM: The heart and great vessels demonstrate no acute abnormality. There is coronary artery calcification and a prosthetic aortic valve is present. There is extensive air throughout the mediastinum. There i s no mediastinal or hilar lymphadenopathy. AXILLAE: There is extensive subcutaneous air throughout the axillary regions. There is no lymphadenopathy. MUSCULOSKELETAL: There is a plate and screws traversing the medial anterior right second rib and costal cartilage and extends to the sternum. The lateral aspect of this plate measuring approximately 1.7 cm and the 2 mos t peripheral screws do not appear to be within any bone. Between the second and third rib anteriorly in the region of the costal cartilage there is a Or dehiscent area measuring approximately 16 mm wher e the pleural space connects with the subcutaneous air. Additionally, between the fourth and fifth ri b anteriorly in the lateral aspect of the costal cartilage there is a 9 mm gap or dehiscent area wher e the pleural space connects with the subcutaneous air and appears to extend to and overlying wound c ontaining packing material and bandage on the skin. MISCELLANEOUS: The visualized upper abdominal organs demonstrate no acute finding. There is severe bilateral subcuta neous emphysema, right greater than left. CONCLUSION: 1. Severe subcutaneous emphysema on the chest wall bilaterally, right greater than left, with also ex tensive pneumomediastinum. There is a space in the right anterior chest wall between the fourth and f ifth ribs anteriorly where the pleural space connects with the subcutaneous tissues and appears to ex tend to a wound on the right chest wall where there is overlying packing material. This is suspicious for a pleurocutaneous fistula. 2. There additionally is a gap or dehiscent area anteriorly between the second and third rib where th e pleural space connects with the subcutaneous tissues. 3. The side plate and screws that traverse the medial anterior right second rib and extend to the cos tegan cartilage is not fully within bone along the peripheral aspect. 4. Tiny right pneumothorax. 5. Small bilateral pleural effusions with associated compressive atelectasis. There may also be mild airspace consolidation in the left lower lobe. Owen Teran MD on October 05, 2016 at 15:59 Board Certified Radiologist. This report was verified electronically. Owen Teran MD on October 05, 2016 at 16:36 Board Certified Radiologist. This report was verified electronically.
[2016-10-05] MEDS: TAMSULOSIN HCL 0.4 MG CAP PO SCH (21:02)
[2016-10-05] MEDS: ATORVASTATIN 40 MG TAB PO SCH (21:02)
[2016-10-06] VITALS (25 sets, daily range): BP systolic 91–124; BP diastolic 55–69; PULSE 62–80; RESP 16–20; TEMP 97.4–98; O2SAT 91–97
[2016-10-06] MEDS: PANTOPRAZOLE SOD 40 MG DELAYED RELEASE TAB PO SCH (05:02)
--- NOTE | 2016-10-06 05:39 | RADRPT ---
EXAM DATE/TIME: 10/06/2016 04:32 [facility] COMPARISON: CT THORAX W/O CONTRAST, October 05, 2016, 15:38. CHEST SINGLE AP, October 05, 2016, 10:52. INDICATIONS : Shortness of breath. MEDICAL HISTORY : Hypertension. Chronic obstructive pulmonary disease. SURGICAL HISTORY : Cardiac valve replacement ENCOUNTER: Subsequent ACUITY: 1 week PAIN SCORE: Non-responsive. LOCATION: Bilateral chest FINDINGS: There is extensive subcutaneous emphysema throughout the chest wall. No definite pneumothorax is seen . There is evidence of a pneumomediastinum. This was noted on the recent CT thorax. The heart size is stable. There is atelectasis in both lung bases. No definite pleural effusions. No significant pierre es are demonstrated. CONCLUSION: 1. Bibasilar atelectasis. 2. Pneumomediastinum. 3. Extensive subcutaneous emphysema. Pb Max MD on October 06, 2016 at 5:36 Board Certified Radiologist. This report was verified electronically.
[2016-10-06] MEDS: INSULIN ASPART SUPPLEMENTAL SCALE SQ SCH ×4 (06:44→21:08)
[2016-10-06] MEDS: RAMIPRIL 2.5 MG CAP PO SCH (08:35)
[2016-10-06] MEDS: ASPIRIN 81 MG CHEW TAB PO SCH (08:36)
[2016-10-06] MEDS: CARVEDILOL 3.125 MG TAB PO SCH ×2 (08:36→21:01)
[2016-10-06] MEDS: AMIODARONE 200 MG TAB PO SCH ×2 (08:37→21:01)
[2016-10-06] MEDS: POLYETHYLENE GLYCOL 17 GM PKG PO SCH (08:37)
[2016-10-06] MEDS: MULTIVITAMINS/MINERALS THERAPEUTIC TAB PO SCH (08:37)
[2016-10-06] MEDS: metFORMIN HCL 500 MG TAB PO SCH ×2 (08:37→18:30)
[2016-10-06] MEDS: DOCUSATE SODIUM 100 MG CAP PO SCH ×2 (08:37→21:01)
[2016-10-06] MEDS: SODIUM CHLORIDE 0.9% FLUSH 5 ML FLUSH IV FLUSH SCH ×2 (08:37→21:02)
[2016-10-06] MEDS: FLUTICASONE 100 MCG/VILANTEROL 25 MCG INHALER INH SCH (08:38)
--- NOTE | 2016-10-06 11:48 | PD.CAR.PN ---
CVT Progress Note CVT: POD #: 6 Subjective/Hospital Course: 76 male hx of (1) Aortic valve stenosis with insufficiency, (2) Diastolic CHF due to valvular disease, no significant CAD per Heart cath other past medical hx : COPD on inhalers, DM on insulin and oral meds , HTN HLP tobacco abuse, Afib on eliquis at home EF 35-40% surgery: Minimally invasive AVR with a 23 Trifecta tissue valve, Left fem-fem cannulation for CPB, MARIYA 09/29 09/30 extubated post surgery , weaned off insulin gtt no pressors + air leak in +1 / repeat CXR noted has small right apical PTX , sub q emphysema continue chest tube to wall suction ok to transfer to stepdown 10/01 still has + 1 air leak on suction , cxr small 1.5cm right apical PTX now on 4 liters nasal cannula remains in NSR with PAC's pain controlled 10/02 CT still draining Crepitus better today.CXR looks improved Likely D/C CT tomorrow Discharge planning 10/03 Large air-leak with copious drainage around the CT Placed a purse-string suture around the CT. Check CXR in am. If no PTX, D/C CT 10/04 still had sub q air right upper chest neck , and right arm lateral chest tube removed, no further air leak remaining chest tube to water seal, f/u CXR in am on room air 10/05 worsening sub q air black dot noted on chest tube insertion site ( chest tube has migrated out) to cause worsening sub q air, Dr Jackson eval CXR chest tube dc, vaseline gauze applied / air tight dressing repeat CXR pending 10/06 CT chest noted, Dr Jackson spoke with radiologist yesterday, small right apical ptx no need for chest tube at this time , pressure dressing with vaseline gauze in place to chest tube sites some improvement to subqu emphysema , will monitor overnight resume eliquis in am Objective: GENERAL: sub q emphysema to chest neck , right shoulder and arm , some improvement SKIN: Warm and dry. HEAD: Normocephalic. EYES: No scleral icterus. No injection or drainage. NECK: Supple, trachea midline. No JVD or lymphadenopathy. CARDIOVASCULAR: Regular rate and rhythm without murmurs, gallops, or rubs. RESPIRATORY: vaseline gauuze with pressure dressing to right chest tube sites Breath sounds equal bilaterally. No accessory muscle use. GASTROINTESTINAL: Abdomen soft, non-tender, nondistended. MUSCULOSKELETAL: No cyanosis, or edema. BACK: Nontender without obvious deformity. No CVA tenderness. Vital Signs Date Time Temp Pulse Resp B/P Pulse Ox O2 Delivery O2 Flow Rate FiO2 10/06/16 07:38 97.8 72 16 124/58 91 10/06/16 06:00 66 10/06/16 04:00 97.8 67 18 117/69 97 10/06/16 04:00 66 10/06/16 04:00 97 Room Air 10/06/16 02:00 69 10/06/16 00:00 98.0 70 18 114/57 93 10/06/16 00:00 74 10/06/16 00:00 93 Room Air 10/05/16 22:00 68 10/05/16 21:00 79 10/05/16 20:00 85 10/05/16 20:00 91 Room Air 10/05/16 20:00 98.1 85 20 100/60 91 10/05/16 18:00 68 10/05/16 17:00 69 10/05/16 16:00 92 Room Air 10/05/16 16:00 69 10/05/16 15:10 98.9 67 20 86/57 92 10/05/16 15:10 92 Room Air 10/05/16 13:00 66 10/05/16 13:00 92 Room Air 10/05/16 13:00 98.7 66 18 97/62 92 10/05/16 12:00 62 (1) Aortic valve stenosis with insufficiency (2) S/P AVR (aortic valve replacement) Plan: low dose ASA + pneumomediastinum discussed with Dr Thornton/ covering for Dr Jackson will observe overnight, keep pressure dressing to right chest / EF 35-40% pulm toileting nebs, ezpap acapella (3) Diastolic CHF due to valvular disease Plan: consider low dose diuretic in am (4) Diabetes mellitus Plan: on insulin sliding scale, metformin HGB aic 6.7 (5) Hyperlipemia Plan: statin (6) Hypertension Plan: coreg (7) hx afib Plan: restart eliquis when chest tube out Mini Bacon Oct 06, 2016 11:47
[2016-10-06] MEDS: APIXABAN 5 MG TABLET PO SCH (21:01)
[2016-10-06] MEDS: ATORVASTATIN 40 MG TAB PO SCH (21:01)
[2016-10-06] MEDS: TAMSULOSIN HCL 0.4 MG CAP PO SCH (21:01)
[2016-10-07] VITALS (13 sets, daily range): BP systolic 96–107; BP diastolic 61–72; PULSE 65–85; RESP 16; TEMP 98–98.8; O2SAT 92–94
[2016-10-07] MEDS: PANTOPRAZOLE SOD 40 MG DELAYED RELEASE TAB PO SCH (05:39)
[2016-10-07] MEDS: INSULIN ASPART SUPPLEMENTAL SCALE SQ SCH ×2 (08:14→12:12)
[2016-10-07] MEDS: CARVEDILOL 3.125 MG TAB PO SCH (09:20)
[2016-10-07] MEDS: MULTIVITAMINS/MINERALS THERAPEUTIC TAB PO SCH (09:21)
[2016-10-07] MEDS: DOCUSATE SODIUM 100 MG CAP PO SCH (09:21)
[2016-10-07] MEDS: ASPIRIN 81 MG CHEW TAB PO SCH (09:21)
[2016-10-07] MEDS: APIXABAN 5 MG TABLET PO SCH (09:21)
[2016-10-07] MEDS: RAMIPRIL 2.5 MG CAP PO SCH (09:21)
[2016-10-07] MEDS: metFORMIN HCL 500 MG TAB PO SCH (09:21)
[2016-10-07] MEDS: POLYETHYLENE GLYCOL 17 GM PKG PO SCH (09:21)
[2016-10-07] MEDS: SODIUM CHLORIDE 0.9% FLUSH 5 ML FLUSH IV FLUSH SCH (09:22)
[2016-10-07] MEDS: FLUTICASONE 100 MCG/VILANTEROL 25 MCG INHALER INH SCH (09:22)
[2016-10-07] MEDS: AMIODARONE 200 MG TAB PO SCH (09:22)
--- NOTE | 2016-10-07 11:29 | HHI.DS ---
Discharge Summary Admission Date Sep 29, 2016 at 05:30 Discharge Date: Oct 07, 2016 Admitting Diagnosis aortic stenosis (1) Aortic valve stenosis with insufficiency Diagnosis: Principal (2) Diabetes mellitus Diagnosis: Principal (3) Hypertension Diagnosis: Principal (4) Hyperlipemia (5) hx afib (6) Diastolic CHF due to valvular disease Diagnosis: Secondary (7) S/P AVR (aortic valve replacement) Diagnosis: Secondary Procedures 09/29 Minimally invasive AVR with a 23 Trifecta tissue valve Left fem-fem cannulation for CPB MARIYA Brief History 76 male hx of (1) Aortic valve stenosis with insufficiency, (2) Diastolic CHF due to valvular disease, no significant CAD per Heart cath other past medical hx : COPD on inhalers, DM on insulin and oral meds , HTN HLP tobacco abuse, Afib on eliquis at home EF 35-40% surgery: Minimally invasive AVR with a 23 Trifecta tissue valve, Left fem-fem cannulation for CPB, MARIYA 09/29 Imaging Last Impressions Chest X-Ray 10/06/16 0600 Signed Impressions: Service Date/Time: Thursday, October 06, 2016 04:32 - CONCLUSION: 1. Bibasilar atelectasis. 2. Pneumomediastinum. 3. Extensive subcutaneous emphysema. Pb Max MD Chest CT 10/05/16 0000 Signed Impressions: Service Date/Time: Wednesday, October 05, 2016 15:38 - CONCLUSION: 1. Severe subcutaneous emphysema on the chest wall bilaterally, right greater than left, with also extensive pneumomediastinum. There is a space in the right anterior chest wall between the fourth and fifth ribs anteriorly where the pleural space connects with the subcutaneous tissues and appears to extend to a wound on the right chest wall where there is overlying packing material. This is suspicious for a pleurocutaneous fistula. 2. There additionally is a gap or dehiscent area anteriorly between the second and third rib where the pleural space connects with the subcutaneous tissues. 3. The side plate and screws that traverse the medial anterior right second rib and extend to the costal cartilage is not fully within bone along the peripheral aspect. 4. Tiny right pneumothorax. 5. Small bilateral pleural effusions with associated compressive atelectasis. There may also be mild airspace consolidation in the left lower lobe. Owen Teran MD PE at Discharge GENERAL: less sub q emphysema , still has some to right shoulder and arm SKIN: Warm and dry./ HEAD: Normocephalic. EYES: No scleral icterus. No injection or drainage. NECK: Supple, trachea midline. No JVD or lymphadenopathy. CARDIOVASCULAR: irregular rate and rhythm without murmurs, gallops, or rubs. RESPIRATORY: Breath sounds equal bilaterally. No accessory muscle use. occulsive vaseline gauze dressing in place to chest , right upper chest wall incision intact and well approximated GASTROINTESTINAL: Abdomen soft, non-tender, nondistended. MUSCULOSKELETAL: No cyanosis, or edema. BACK: Nontender without obvious deformity. No CVA tenderness. Hospital Course 09/30 extubated post surgery , weaned off insulin gtt no pressors + air leak in + / repeat CXR noted has small right apical PTX , sub q emphysema continue chest tube to wall suction ok to transfer to stepdown 10/01 still has + 1 air leak on suction , cxr small 1.5cm right apical PTX now on 4 liters nasal cannula remains in NSR with PAC's pain controlled 10/02 CT still draining Crepitus better today.CXR looks improved Likely D/C CT tomorrow Discharge planning 10/03 Large air-leak with copious drainage around the CT Placed a purse-string suture around the CT. Check CXR in am. If no PTX, D/C CT 10/04 still had sub q air right upper chest neck , and right arm lateral chest tube removed, no further air leak remaining chest tube to water seal, f/u CXR in am on room air 10/05 worsening sub q air black dot noted on chest tube insertion site ( chest tube has migrated out) to cause worsening sub q air, Dr Jackson eval CXR chest tube dc, vaseline gauze applied / air tight dressing repeat CXR pending 10/06 CT chest noted, Dr Jackson spoke with radiologist yesterday, small right apical ptx no need for chest tube at this time , pressure dressing with vaseline gauze in place to chest tube sites some improvement to subqu emphysema , will monitor overnight 10/07 overall improvement in sub q air vaseline occulsive pressure dressing to right chest dc instructions given to pt and will dc today , to return to ED if any worsening subq air leave current dressing in place x 48hrs Discharge Disposition: Disch w/ Home Health Serv Discharge Instructions DIET: Follow Instructions for: Heart Healthy Diet Activities you can perform: Full Weight Bearing, Shower Only-No Bath Activities to avoid: Prolonged Standing, Strenuous Activity, Driving Additional Activity Instructio: no lifting > 8 lbs or gallon of milk Follow up Referrals: Cardiology - 10/29/16 with Jos Garcia MD PCP Follow-up - 10/15/[address] Zach Myrick Surgical - 10/15/16 with Peggy Jackson MD New Orders: 2D ECHO - 2 Weeks BASIC METABOLIC PROF - 2 Weeks CBC NO DIFF - 2 Weeks X-RAY CHEST PA & LAT - 2 Weeks Continued Medications: Apixaban (Eliquis) 5 Mg Tab 5 MG PO BID Blood Clot Prevention #60 Ref 0 TAB Atorvastatin (Atorvastatin) 40 Mg Tab 40 MG PO HS Cholesterol Management #30 Ref 0 TAB Calcium Carbonate-Cholecalciferol (Calcium 1000 + D) 1,000-800 Mg-Unit Tab 1 TAB PO BID TAB Carvedilol (Carvedilol) 6.25 Mg Tab 6.25 MG PO BID #60 Ref 0 TAB Famotidine (Famotidine) 20 Mg Tab 20 MG PO DAILY #60 Ref 0 TAB Fluticasone-Vilanterol Inh (Breo Ellipta Inh) 100-25 Mcg/Act Inh 1 PUFF INH DAILY Use daily at the same time. #1 Ref 0 INHALER Furosemide (Furosemide) 40 Mg Tab 40 MG PO DAILY #30 Ref 0 TAB Isosorbide Mononitrate ER (Isosorbide Mononitrate ER) 30 Mg Ranulfo 30 MG PO DAILY Prevent Chest Pain #30 Ref 0 TAB Metformin (Metformin) 1,000 Mg Tab 1000 MG PO BIDPC With meals Blood Sugar Management #60 Ref 0 TAB Multiple Vitamins W/ Minerals (Icaps) 1 Cap 1 CAP PO DAILY Nutritional Supplement Ref 0 CAP Nateglinide (Nateglinide) 120 Mg Tab 120 MG PO BID Blood Sugar Management #90 Ref 0 TAB Potassium Chloride ER (Potassium Chloride ER) 20 Meq Tab 20 MEQ PO DAILY Electrolyte Replacement #30 Ref 0 TAB Ramipril (Ramipril) 5 Mg Cap 5 MG PO DAILY #30 Ref 0 CAP Tamsulosin (Tamsulosin) 0.4 Mg Cap 0.4 MG PO HS Manage Prostate Problems #30 Ref 0 CAP Teriparatide (Recombinant) Inj (Forteo Inj) 600 Mcg/2.4 Ml Pen 20 MCG SQ DAILY Osteoporosis Ref 0 PEN Mini Bacon Oct 07, 2016 11:29
== END 2016-10-07 13:25 | disposition home health service (06) | DRG 220 ==
LOC: HSDI 09-29 05:30 → EDUNIT# 09-29 07:30 → HCVR 09-29 12:43 → HCPC 10-01 10:19
PROVIDERS: ADMIT Thoracic Surgery (Cardiothoracic Vascular Surgery); ATTEND Thoracic Surgery (Cardiothoracic Vascular Surgery)
PROC: B246ZZ4 Ultrasonography of Right and Left Heart, Transesophageal (ICD-10-PCS; 2016-09-29)
PROC: 02RF08Z Replacement of Aortic Valve with Zooplastic Tissue, Open Approach (ICD-10-PCS; principal; 2016-09-29 07:03)
PROC: 5A1221Z Performance of Cardiac Output, Continuous (ICD-10-PCS; 2016-09-29 07:03)
DX: I35.2 Nonrheumatic aortic (valve) stenosis with insufficiency (principal); I50.32 Chronic diastolic (congestive) heart failure; J98.2 Interstitial emphysema; J95.811 Postprocedural pneumothorax; I48.91 Unspecified atrial fibrillation; J44.9 Chronic obstructive pulmonary disease, unspecified; E11.9 Type 2 diabetes mellitus without complications; I10 Essential (primary) hypertension; E78.5 Hyperlipidemia, unspecified; Z72.0 Tobacco use; Z79.4 Long term (current) use of insulin; Z79.01 Long term (current) use of anticoagulants; Y83.8 Other surgical procedures as the cause of abnormal reaction of the patient, or of later complication, without mention of misadventure at the time of the procedure
CPT/HCPCS: 71010; 71250; 76937; 80048; 82948; 83735; 85014; 85025; 85027; 86850; 86900; 86901; 86920; 88305; 88311; 93005; 93318; 94002; 94150; 94640; 94664; 94667; 94668; C1713; C9248; C9399; J0131; J0690; J1644; J1815; J2150; J2250; J2370; J2720; J2930; J3010; J3370; J3475; J3480; J7030; J7050; J7120; P9047

== ENCOUNTER 2016-10-12 21:34 | Inpatient (IN) | payer MEDICARE ==
[~2016-10-12] VITALS: Ht 177.8 cm; Wt 71.6 kg
[~2016-10-12 21:34] MED LIST changes: -POTA75TA2 PO
[2016-10-12 21:42] VITALS: BP 115/69; PULSE 89; RESP 16; TEMP 98.1; O2SAT 95
--- NOTE | 2016-10-12 22:09 | PD ---
HPI Chief Complaint: Hip Injury Time Seen by Provider: 21:43 Travel History International Travel<30 days: No Contact w/Intl Traveler<30days: No Traveled to known affect area: No History of Present Illness HPI 76yo M with aortic valve replacement on 09/29/16, CHF, DM, afib was transferred from [facility] for large amount of pneumomediastinum. Pt fell today at 9am while bending forward and found to have right intertrochanteric fracture. Denies any head trauma, chest pain, sob, n/v, abdominal pain, focal numbness or weakness. Pt was admitted 09/29/16-10/07/16 and had right PTX s/p chest tube insertion and removal. Accepting physician was Dr. Williamson. [facility] Past Medical History Cancer: Yes (FOREHEAD SKIN CA) Cardiovascular Problems: Yes (AFIB, CHF, SEVERE AORTIC STENOSIS, CARDIOMYOPATHY ) Diabetes: Yes (TYPE II) Patient Takes Glucophage: No Endocrine: Yes Genitourinary: No Hepatitis: No Hiatal Hernia: No Hypertension: Yes Immune Disorder: No Musculoskeletal: Yes (BILATERAL KNEE PAIN, OA) Neurologic: No Psychiatric: No Reproductive: No Respiratory: Yes (COPD, PNEUMONIA) Thyroid Disease: No Tetanus Vaccination: Unknown Influenza Vaccination: Yes Past Surgical History Abdominal Surgery: No AICD: No Cardiac Surgery: Yes (aortic valve rep) Ear Surgery: No Endocrine Surgery: No Eye Surgery: No Genitourinary Surgery: Yes (CIRCUMCISION) Gynecologic Surgery: No Joint Replacement: No Oral Surgery: No Pacemaker: No Thoracic Surgery: No Other Surgery: Yes Social History Alcohol Use: No Tobacco Use: No Substance Use: No Allergies-Medications (Allergen,Severity, Reaction): Coded Allergies: No Known Allergies (Unverified , 09/24/16) Reported Meds & Prescriptions Reported Meds & Active Scripts Active Reported Icaps (Multiple Vitamins W/ Minerals) 1 Cap 1 Cap PO DAILY Breo Ellipta Inh (Fluticasone/Vilanterol) 100-25 Mcg/Act Inh 1 Puff INH DAILY Use daily at the same time. Forteo Inj (Teriparatide (Recombinant) Inj) 600 Mcg/2.4 Ml Pen 20 Mcg SQ DAILY Carvedilol 6.25 Mg Tab 6.25 Mg PO BID Ramipril 5 Mg Cap 5 Mg PO DAILY Furosemide 40 Mg Tab 40 Mg PO DAILY Isosorbide Mononitrate ER (Isosorbide Mononitrate) 30 Mg Ranulfo 30 Mg PO DAILY Calcium 1000 + D (Calcium Carbonate-Cholecalciferol) 1,000-800 Mg-Unit Tab 1 Tab PO BID Potassium Chloride ER (Potassium Chloride) 20 Meq Tab 20 Meq PO DAILY Eliquis (Apixaban) 5 Mg Tab 5 Mg PO BID Tamsulosin (Tamsulosin HCl) 0.4 Mg Cap 0.4 Mg PO HS Famotidine 20 Mg Tab 20 Mg PO DAILY Atorvastatin (Atorvastatin Calcium) 40 Mg Tab 40 Mg PO HS Nateglinide 120 Mg Tab 120 Mg PO BID Metformin (Metformin HCl) 1,000 Mg Tab 1,000 Mg PO BIDPC With meals Review of Systems Except as stated in HPI: all other systems reviewed are Neg Physical Exam Narrative GENERAL: 76yo M not in distress. SKIN: Warm and dry. HEAD: Atraumatic. Normocephalic. NECK: Trachea midline. No JVD. CHEST WALL: +Subcutaneous air felt in mid chest. CARDIOVASCULAR: Regular rate and rhythm. No murmur appreciated. RESPIRATORY: No accessory muscle use. Clear to auscultation. Breath sounds equal bilaterally. GASTROINTESTINAL: Abdomen soft, non-tender, nondistended. Hepatic and splenic margins not palpable. MUSCULOSKELETAL: RLE: Decreased ROM right hip. Sensation intact. DP2+. NEUROLOGICAL: Awake and alert. No obvious cranial nerve deficits. Motor grossly within normal limits. Normal speech. PSYCHIATRIC: Appropriate mood and affect; insight and judgment normal. Data Data Last Documented VS Vital Signs Date Time Temp Pulse Resp B/P Pulse Ox O2 Delivery O2 Flow Rate FiO2 10/12/16 21:46 16 96 Room Air 10/12/16 21:42 98.1 89 115/69 Orders Admit To Inpatient (10/12/16 ) Vital Signs (Adult) Q4H (10/12/16 22:12) Activity Bed Rest (10/12/16 22:12) Hydraulic Blocker / Telemetry .CONTINUOUS (10/12/16 22:12) Sodium Chloride 0.9% Flush (Ns Flush) (10/12/16 22:15) Sodium Chloride 0.9% Flush (Ns Flush) (10/13/16 09:00) Basic Metabolic Panel (Bmp) (10/13/16 06:00) Consult Orthopedic (10/12/16 ) Complete Blood Count With Diff (10/13/16 06:00) Electrocardiogram (10/12/16 22:12) Case Management Consult (10/12/16 22:12) Scd Bilateral/Knee High ALEX.BID (10/12/16 22:12) Naloxone Inj (Narcan Inj) (10/12/16 22:15) Inpatient Certification (10/12/16 ) Morphine Inj (Morphine Inj) (10/12/16 22:15) Admit Order (Ed Use Only) (10/12/16 22:21) [facility] Medical Decision Making Medical Screen Exam Complete: Yes Emergency Medical Condition: Yes Interpretation(s) EKG: NSR 85bpm with 1st AV block. LAD. Q wave III. TWI I, aVL. Differential Diagnosis Pneumomediastinum Right trochanteric fracture. Narrative Course 76yo M transferred here with [facility] for pneumomediastinum. Pt also fell today and found to have a right intertrochanteric fracture. Orthopedic consult placed. Discussed with Dr. Sanders. Labs from [facility] today reviewed mild leukocytosis at 13.9. H/H stable at 12.5/38.0. Normal platelet 281. INR mildly elevated at 1.4. BMP unremarkable. Discussed with Dr. Farley and accepted to her care. Diagnosis Primary Impression: Pneumomediastinum Additional Impression: Fracture, intertrochanteric, right femur Qualified Code: S72.141A - Fracture, intertrochanteric, right femur, closed, initial encounter Admitting Information Admitting Physician Requests: Admit Kirstie Montez DO Oct 12, 2016 22:09
[2016-10-12] MEDS ORDERED: NALOXONE HCL 0.4 MG/ML AMP IV PRN (22:15)
[2016-10-12] MEDS ORDERED: SODIUM CHLORIDE 0.9% FLUSH 5 ML FLUSH FLUSH PRN (22:15)
[2016-10-12 22:28] VITALS: BP 113/69; PULSE 84; RESP 20; O2SAT 98
--- NOTE | 2016-10-12 23:15 | RADRPT ---
EXAM DATE/TIME: 10/12/2016 22:59 [facility] COMPARISON: No previous studies available for comparison. INDICATIONS : Right hip pain after fall. MEDICAL HISTORY : None. SURGICAL HISTORY : None. ENCOUNTER: Initial ACUITY: 1 day PAIN SCORE: 10/10 LOCATION: Right Hip. FINDINGS: There is an acute intertrochanteric fracture of the right femur. The fracture has mild medial angulat ion but is otherwise not significantly displaced. Femoral head is intact. No subluxations. CONCLUSION: Intertrochanteric fracture of the proximal right femur with mild medial angulation deformity. Owen Velasco MD on October 12, 2016 at 23:12 Board Certified Radiologist. This report was verified electronically.
--- NOTE | 2016-10-12 23:57 | PD.CONS ---
cc: Rocky Sanders MD [facility] Service Orthopedic Surgeons Consult Requested By Medical service Reason for Consult Right intertrochanteric proximal femur fracture Primary Care Physician Non-Staff Admission Diagnosis Pneumomediastinum and right intertrochanteric fracture Diagnoses: (1) Aortic valve stenosis with insufficiency (2) Diabetes mellitus (3) Hyperlipemia (4) Hypertension (5) hx afib (6) Diastolic CHF due to valvular disease (7) Pneumomediastinum (8) Fracture, intertrochanteric, right femur (9) S/P AVR (aortic valve replacement) Chief Complaint: Right hip pain History of Present Illness This 76-year-old male who is recently status post aortic valve replacement who fell earlier today injuring his right hip. Patient had pain and inability ambulate. [facility] to [facility]. X-rays revealed an intertrochanteric fracture of the right proximal femur. Because of his history of recent heart valve surgery was felt the patient would require evaluation by his surgeon prior to undergoing fixation of his hip. He was therefore transferred to [facility]. He was admitted to the medical service. Orthopedic consultation was requested. The patient states that in general he has been doing well since his surgery. He denies having had dizziness or other symptoms related to the fall. His workup has revealed a pneumomediastinum. He currently is anticoagulated with Eliquis. Review of Systems Reviewed and well outlined in the medical record. Past Family Social History Past Medical History [facility] Past Medical History Cancer: Yes (FOREHEAD SKIN CA) Cardiovascular Problems: Yes (AFIB, CHF, SEVERE AORTIC STENOSIS, CARDIOMYOPATHY ) Diabetes: Yes (TYPE II) Patient Takes Glucophage: No Endocrine: Yes Genitourinary: No Hepatitis: No Hiatal Hernia: No Hypertension: Yes Immune Disorder: No Musculoskeletal: Yes (BILATERAL KNEE PAIN, OA) Neurologic: No Psychiatric: No Reproductive: No Respiratory: Yes (COPD, PNEUMONIA) Thyroid Disease: No Tetanus Vaccination: Unknown Influenza Vaccination: Yes Past Surgical History Abdominal Surgery: No AICD: No Cardiac Surgery: Yes (aortic valve rep) Ear Surgery: No Endocrine Surgery: No Eye Surgery: No Genitourinary Surgery: Yes (CIRCUMCISION) Gynecologic Surgery: No Joint Replacement: No Oral Surgery: No Pacemaker: No Thoracic Surgery: No Other Surgery: Yes Social History Alcohol Use: No Tobacco Use: No Substance Use: No Allergies: Coded Allergies: No Known Allergies (Unverified , 09/24/16) Active Ordered Medications Current Medications Medications (Trade) Dose Ordered Sig/Ni Route Start Time Stop Time Status Last Admin (NS Flush) 2 ml UNSCH PRN FLUSH 10/12/16 22:15 (NS Flush) 2 ml BID FLUSH 10/13/16 09:00 (Narcan Inj) 0.4 mg UNSCH PRN IV 10/12/16 22:15 (Morphine Inj) 2 mg Q3H PRN IV PUSH 10/12/16 22:15 Reported Meds & Active Scripts Active Reported Icaps (Multiple Vitamins W/ Minerals) 1 Cap 1 Cap PO DAILY Forteo Inj (Teriparatide (Recombinant) Inj) 600 Mcg/2.4 Ml Pen 20 Mcg SQ DAILY Carvedilol 6.25 Mg Tab 6.25 Mg PO BID Ramipril 5 Mg Cap 5 Mg PO DAILY Furosemide 40 Mg Tab 40 Mg PO DAILY Isosorbide Mononitrate ER (Isosorbide Mononitrate) 30 Mg Ranulfo 30 Mg PO DAILY Calcium 1000 + D (Calcium Carbonate-Cholecalciferol) 1,000-800 Mg-Unit Tab 1 Tab PO BID Potassium Chloride ER (Potassium Chloride) 20 Meq Tab 20 Meq PO DAILY Eliquis (Apixaban) 5 Mg Tab 5 Mg PO BID Tamsulosin (Tamsulosin HCl) 0.4 Mg Cap 0.4 Mg PO HS Famotidine 20 Mg Tab 20 Mg PO DAILY Atorvastatin (Atorvastatin Calcium) 40 Mg Tab 40 Mg PO HS Nateglinide 120 Mg Tab 120 Mg PO BID Metformin (Metformin HCl) 1,000 Mg Tab 1,000 Mg PO BIDPC With meals Family History Noncontributory Physical Exam Vital Signs Vital Signs Date Time Temp Pulse Resp B/P Pulse Ox O2 Delivery O2 Flow Rate FiO2 10/12/16 22:28 84 20 113/69 98 Room Air 10/12/16 21:46 16 96 Room Air 10/12/16 21:42 98.1 89 16 115/69 95 Physical Exam The patient is awake and alert and answers questions appropriately. He is complaining only of right hip pain. It is well controlled currently with medication. There is no evidence of other extremity injury. The right lower extremity is externally rotated. There is pain with any attempt at range of motion. He moves his toes and ankle freely and has good capillary refill and sensation distally. Laboratory Imaging Last 48 hours Impressions Hip and Pelvis X-Ray 10/12/16 0000 Signed Impressions: Service Date/Time: Wednesday, October 12, 2016 22:59 - CONCLUSION: Intertrochanteric fracture of the proximal right femur with mild medial angulation deformity. Owen Velasco MD Assessment & Plan Problem List: (1) Aortic valve stenosis with insufficiency (2) Diabetes mellitus (3) Hyperlipemia (4) Hypertension (5) hx afib (6) Diastolic CHF due to valvular disease (7) Pneumomediastinum (8) Fracture, intertrochanteric, right femur (9) S/P AVR (aortic valve replacement) Assessment and Plan The findings were discussed. The patient has not been evaluated by medicine or his cardiac surgeon at this time. He currently is anticoagulated with Eliquis. This alone may require delay of surgical management for 48 hours. We will await clearance with regards to his recent surgery and pneumomediastinum to proceed with surgical management. Recommendations are for internal fixation of the right proximal femur fracture to allow pain control and mobilization. The nature of the procedure, the risks, expected benefits, as well as the postoperative expectations have been discussed with him in detail. In addition , the alternatives of the treatment and risks of same were discussed. The patient acknowledges full understanding. All his questions were answered to his satisfaction. Rocky Sanders MD Oct 12, 2016 23:57
[2016-10-13] VITALS (9 sets, daily range): BP systolic 90–116; BP diastolic 58–68; PULSE 70–88; RESP 16–20; TEMP 97.8–98.8; O2SAT 93–99
--- NOTE | 2016-10-13 00:55 | HHI.HP ---
[facility] Primary Care Physician Non-Staff Admission Diagnosis Pneumomediastinum and right intertrochanteric fracture Diagnoses: (1) Fracture, intertrochanteric, right femur (2) S/P AVR (aortic valve replacement) Travel History International Travel<30 Days: No Contact w/Intl Traveler <30 Da: No Traveled to Known Affected Are: No History of Present Illness This patient, ER physician communication, and transfer notes from [facility]. Patient reported that he had a recent aortic valve replacement here at our hospital. He stated he was feeling so good at home and was walking around and doing his garden work. However earlier yesterday, he states he somehow tripped and fell at his garden. He denies any loss of consciousness. Denies hitting his head. He denies any premonitory symptoms prior to the fall such as chest pain/ palpitations/dizziness/focal weakness. He noted that this is just a simple trip and fall. Patient presented to [facility]. Workup there revealed right intertrochanteric femoral neck fracture. Patient denies any recent fever/nausea/vomiting/diarrhea/urinary burning or pain on urination. He denies any hematemesis/hematochezia/melena/hematuria. He reports he is on eliquis. Patient also was found to have large subcutaneous emphysema and pneumomediastinum on his CT chest. He was therefore transferred here to our hospital to the care of his cardiovascular surgeon. However patient himself reported to me that his subcutaneous emphysema had significantly improved. He stated that at one point post aortic valve surgery, he did have swelling a of all his subcutaneous tissues all the way up to his neck and face. He stated this has improved much and now the crepitations are mainly at his chest and extremities. Review of Systems Other 12 point review of systems is obtained and negative apart from what is mentioned in HPI Past Family Social History Past Medical History Hypertension Diabetes Aortic valve replacementMinimally invasive AVR with a 23 Trifecta tissue valve September 29, 2016 Congestive heart failuresecondary to valvular insufficiencypatient reported EF of 35%. Chart review revealed diastolic dysfunction as well. Atrial fibrillation Chronic anticoagulationon eliquis COPD Osteoporosis History of forehead skin cancer Past Surgical History Circumcision Aortic Valve replacement Left wrist surgery Reported Medications Patient's medications list from hospital dischargereviewed. Patient is not able to recall the names and doses. Stated nothing has changed since the hospital discharge. Allergies: Coded Allergies: No Known Allergies (Unverified , 09/24/16) Family History Patient's mother and father both had strokes and MIs. However they lived to be in to their 80s. Mother also had some kind of cancer and was treated with radiation in her 50s. Social History Used to smoke cigarettes. Quit about 2 weeks ago after this aortic valve surgery. Denies any alcohol abuse or drug abuse. Physical Exam Vital Signs Vital Signs Date Time Temp Pulse Resp B/P Pulse Ox O2 Delivery O2 Flow Rate FiO2 10/12/16 22:28 84 20 113/69 98 Room Air 10/12/16 21:46 16 96 Room Air 10/12/16 21:42 98.1 89 16 115/69 95 Physical Exam GENERAL: This is a well-nourished, well-developed patient, in no apparent distress. SKIN: Multiple subcutaneous emphysema all throughout his chest and bilateral upper extremity. He HEAD: Atraumatic. Normocephalic. No temporal or scalp tenderness. EYES: No scleral icterus. No injection or drainage. ENT: Nose without bleeding, purulent drainage or septal hematoma. Airway patent. NECK: Trachea midline. No JVD CARDIOVASCULAR: Regular rate and rhythm without murmurs, gallops, or rubs. Surgical incision scar and right parasternal area clean. RESPIRATORY: Clear to auscultation. Breath sounds equal bilaterally. No wheezes , rales, or rhonchi. GASTROINTESTINAL: Abdomen soft, non-tender, nondistended. No guarding.. Musculoskeletal: No calf asymmetry or edema. Right hip pain NEUROLOGICAL: Awake and alert. Motor and sensory grossly within normal limits.Normal speech. Laboratory Patient's labs from [facility] that was done todayreviewed. WBC 13.9. Hemoglobin of 12.5. Hematocrit 38.0. Platelet 281. PT 17.7. INR 1.4. PTT 31.1. Chemistry panelreviewed. None of normal. BUN 15. Creatinine 1.09. Imaging Patient's CT chest done at [facility] on October 12, 2016reviewed. Large amount of subcutaneous emphysema and need pneumomediastinum. No evidence of pneumothorax. Mild upper lobe predominant centrilobular emphysema. X-ray of the chestwith similar findings of marked subcutaneous emphysema. Hip x-rayright intertrochanteric fracture. Assessment and Plan Problem List: (1) Fracture, intertrochanteric, right femur ICD Code: S72.141A Status: Acute (2) S/P AVR (aortic valve replacement) ICD Code: Z95.2 Status: Acute Assessment and Plan Impression: Status post fall Right intertrochanteric femoral fracture Large subcutaneous emphysema and pneumomediastinumstatus post aortic valve replacement September 29, 2016. Improving subcutaneous emphysema since surgery per patient. Chronic anticoagulation on Eliquis Hypertension Diabetes Aortic valve replacementMinimally invasive AVR with a 23 Trifecta tissue valve September 29, 2016 Congestive heart failuresecondary to valvular insufficiencypatient reported EF of 35%. Chart review revealed diastolic dysfunction as well. Atrial fibrillation Chronic anticoagulationon eliquis COPD Osteoporosis History of forehead skin cancer Plan: Patient was seen by orthopedic surgeon. Advised to wait for about 48 hours prior to going to the OR because of eliquis Pain control with Dilaudid Resume home meds apart from blood thinners. hold eliquis for 48hrs prior to surgery will need to start pt on heparin drip to overlap by am pt is medically cleared for orthopedic hip fracture repair / replacement - about 48hrs from last dose of eliquis - ie Tuesday10/15/16 am with high risk. Discussed Condition With patient, ER MD, ER nurse Physician Certification 2 Midnight Certification Type: Admission for Inpatient Services Order for Inpatient Services The services are ordered in accordance with Medicare regulations or non- Medicare payer requirements, as applicable. In the case of services not specified as inpatient-only, they are appropriately provided as inpatient services in accordance with the 2-midnight benchmark. Estimated LOS (days): 5 days is the estimated time the patient will need to remain in the hospital, assuming treatment plan goals are met and no additional complications. Post-Hospital Plan: Not yet determined Problem Qualifiers (1) Fracture, intertrochanteric, right femur: Qualified Code: S72.141A - Fracture, intertrochanteric, right femur, closed, initial encounter Betzaida Farley MD Oct 13, 2016 00:55
[2016-10-13 05:05] LABS: EOSINOPHIL # 0.5 TH/MM3 (0-0.4); EOSINOPHIL % 3.9 % (0.0-4.0); HEMATOCRIT 35.2 % (39.0-51.0); HEMO FLAGS DIFF FINAL; LYMPH % 7.8 % (9.0-44.0); LYMPHOCYTE # 1.1 TH/MM3 (1.0-4.8); MEAN CELL VOLUME 88.1 FL (80.0-100.0); MEAN CORPUSCULAR HEMOGLOBIN 29.7 PG (27.0-34.0); MEAN CORPUSCULAR HGB CONC 33.7 % (32.0-36.0); MONO % 2.1 % (0.0-8.0); NEUT % 86.2 % (16.0-70.0); PLATELET COUNT 234 TH/MM3 (150-450); RED CELL DISTRIBUTION WIDTH 14.5 % (11.6-17.2); WHITE BLOOD COUNT 13.9 TH/MM3 (4.0-11.0)
[2016-10-13 05:25] LABS: BICARBONATE 28.6 MEQ/L (21.0-32.0); POTASSIUM 4.2 MEQ/L (3.5-5.1)
[2016-10-13] MEDS ORDERED: GLUCAGON 1 MG/ML VIAL OTHER PRN (08:00)
[2016-10-13] MEDS ORDERED: DEXTROSE 50% IN WATER 50 ML VIAL(D50) IV PUSH PRN (08:00)
[2016-10-13] MEDS: SODIUM CHLORIDE 0.9% FLUSH 5 ML FLUSH FLUSH SCH ×2 (09:00→21:10)
[2016-10-13] MEDS: HEPARIN-D5W INJ 250 ML IV SCH (09:11)
[2016-10-13] MEDS: CARVEDILOL 6.25 MG TAB PO SCH ×2 (09:20→21:00)
[2016-10-13] MEDS: FAMOTIDINE 20 MG TAB PO SCH (09:20)
[2016-10-13] MEDS: ISOSORBIDE MONONITRATE 30 MG TAB PO SCH (09:20)
[2016-10-13] MEDS: FUROSEMIDE 40 MG TAB PO SCH (09:20)
[2016-10-13] MEDS: POTASSIUM CHLORIDE 20 MEQ CONTROLLED RELEASE TAB PO SCH (09:20)
[2016-10-13] MEDS: RAMIPRIL 5 MG CAP PO SCH (09:25)
[2016-10-13] MEDS: MORPHINE SULFATE 4 MG/ML INJ IV PUSH PRN ×2 (10:02→13:01)
[2016-10-13] MEDS: INSULIN ASPART SUPPLEMENTAL SCALE SQ SCH ×3 (11:00→21:00)
--- NOTE | 2016-10-13 15:37 | EKG ---
Date Performed: 10/12/2016 Time Performed: 23:12:11 PTAGE: 76 years EKG: Sinus rhythm WITH FIRST DEGREE AV BLOCK NONSPECIFIC T-WAVE ABNORMALITY Compared to prior tracing no significant c hange ABNORMAL ECG PREVIOUS TRACING : 09/30/2016 02.41 DOCTOR: Colton Call Interpretating Date/Time 10/13/2016 15:35:17
[2016-10-13 15:41] LABS: APTT (PATIENT) 34.9 SEC (24.3-30.1)
--- NOTE | 2016-10-13 17:41 | PD.CAR.PN ---
CVT Progress Note Subjective/Hospital Course: 76 male hx of (1) Aortic valve stenosis with insufficiency, (2) Diastolic CHF due to valvular disease, no significant CAD per Heart cath other past medical hx : COPD on inhalers, DM on insulin and oral meds , HTN HLP tobacco abuse, Afib on eliquis at home EF 35-40% surgery: Minimally invasive AVR with a 23 Trifecta tissue valve, Left fem-fem cannulation for CPB, MARIYA 09/29 pt had small apical ptx subq emphysema post surgery , required additional suture at chest tube site, postop, continued to have some subq emphysema , PTX resolved chest tube dc , vaseline pressure applied CT chest was done small pneumomediastinum , extensive subq air, pt improved over the course of a couple of days and was restarted on eliquis for his hx afib dc home on 10/07 with [facility] , still with some subq emphysema to right chest arm , and neck area pt apparently fell at home causing a intertrochanteric fracture of prox right femur and was taken to [facility] in [place], they repeated CT chest which still showed some evidence of pneumomediastinum and extensive sub q air he was transferred to our facility 2/2 recent AVR and concern for the pneumomediastinum which is improving, and clinical eval of subq emphysema is also improving he is currently doing well and recovering from his recent surgery. Unfortunately now requires repair of right hip fx He is currently stable from a CVS standpoint to have repair of Right hip, the subq emphysema will continue to improve , CV surgery warranted at this time, or intervention continue curretn meds, with exception of eliquis, and agree with heparin gtt to bridge for surgery at this time Objective: GENERAL: SKIN: Warm and dry.right chest incision intact and well approximated / healing well still has mild subq emphysema to right chest and arm, however greatly improved HEAD: Normocephalic. EYES: No scleral icterus. No injection or drainage. NECK: Supple, trachea midline. No JVD or lymphadenopathy. CARDIOVASCULAR: Regular rate and rhythm without murmurs, gallops, or rubs. RESPIRATORY: Breath sounds equal bilaterally. No accessory muscle use. GASTROINTESTINAL: Abdomen soft, non-tender, nondistended. MUSCULOSKELETAL: No cyanosis, or edema. BACK: Nontender without obvious deformity. No CVA tenderness. Vital Signs Date Time Temp Pulse Resp B/P Pulse Ox O2 Delivery O2 Flow Rate FiO2 10/13/16 17:10 98.0 78 18 98/62 99 10/13/16 15:48 98.0 77 16 90/58 99 Room Air 3 10/13/16 13:06 16 10/13/16 12:54 70 18 110/68 99 Room Air 10/13/16 09:34 84 17 106/60 99 Room Air 10/13/16 07:20 78 18 96 Nasal Cannula 3 10/13/16 07:05 97.8 80 18 113/58 96 Nasal Cannula 3 10/13/16 06:28 78 20 104/63 98 Nasal Cannula 2 10/13/16 05:36 80 20 116/60 98 Nasal Cannula 2 10/13/16 01:05 76 20 100/60 98 Nasal Cannula 2 10/12/16 22:28 84 20 113/69 98 Room Air 10/12/16 21:46 16 96 Room Air 10/12/16 21:42 98.1 89 16 115/69 95 Labs: Laboratory Tests Test 10/13/16 15:00 Activated Partial 34.9 SEC Thromboplast Time (24.3-30.1) Result Diagram: 10/13/16 0435 10/13/16 0435 Telemetry: NSR (1) Pneumomediastinum Plan: improving (2) S/P AVR (aortic valve replacement) Plan: continue pulm toileting home Mini Barlow Oct 13, 2016 17:41
[2016-10-13] MEDS: ATORVASTATIN 40 MG TAB PO SCH (21:08)
[2016-10-13] MEDS: TAMSULOSIN HCL 0.4 MG CAP PO SCH (21:09)
[2016-10-13 21:28] LABS: APTT (PATIENT) 38.7 SEC (24.3-30.1)
[2016-10-14] VITALS: BP 114/62; PULSE 79; RESP 18; TEMP 98; O2SAT 94
[2016-10-14 04:00] VITALS: BP 87/54; PULSE 80; RESP 18; TEMP 97.3; O2SAT 90
[2016-10-14 05:19] LABS: APTT (PATIENT) 44.6 SEC (24.3-30.1)
[2016-10-14] MEDS: INSULIN ASPART SUPPLEMENTAL SCALE SQ SCH ×4 (06:54→20:50)
[2016-10-14] MEDS: HEPARIN-D5W INJ 250 ML IV SCH (06:56)
[2016-10-14 08:45] VITALS: BP 102/58; PULSE 82; RESP 18; TEMP 97.4; O2SAT 92
[2016-10-14] MEDS ORDERED: TERIPARATIDE 20 MCG SQ SCH (09:00)
[2016-10-14] MEDS: ISOSORBIDE MONONITRATE 30 MG TAB PO SCH (09:00)
[2016-10-14] MEDS: CARVEDILOL 6.25 MG TAB PO SCH ×2 (09:00→20:50)
[2016-10-14] MEDS: FUROSEMIDE 40 MG TAB PO SCH (09:00)
[2016-10-14] MEDS ORDERED: LACTATED RINGER'S 1000 ML IV SCH (09:15)
[2016-10-14] MEDS ORDERED: METOPROLOL TARTRATE 25 MG TAB PO PRN (09:15)
[2016-10-14] MEDS ORDERED: INSULIN HUMAN REGULAR 1,000 UNITS/10 ML VIAL SQ PRN (09:15)
[2016-10-14] MEDS ORDERED: SODIUM CHLORID 0.9% 500 ML IV SCH (09:15)
[2016-10-14] MEDS: POTASSIUM CHLORIDE 20 MEQ CONTROLLED RELEASE TAB PO SCH (09:17)
[2016-10-14] MEDS: RAMIPRIL 5 MG CAP PO SCH (09:17)
[2016-10-14] MEDS: FAMOTIDINE 20 MG TAB PO SCH (09:17)
[2016-10-14] MEDS: SODIUM CHLORIDE 0.9% FLUSH 5 ML FLUSH FLUSH SCH ×2 (09:18→20:50)
[2016-10-14 10:04] VITALS: PULSE 91
[2016-10-14] MEDS ORDERED: ceFAZolin 2 GM PREMIX 50 ML IV SCH (11:00)
[2016-10-14 11:28] LABS: APTT (PATIENT) 42.4 SEC (24.3-30.1)
[2016-10-14 12:00] VITALS: BP 97/53; PULSE 77; RESP 18; TEMP 96.9; O2SAT 92
[2016-10-14] MEDS ORDERED: ePHEDrine/NS 25 MG/5 ML SYR IV ONE (12:00)
[2016-10-14] MEDS ORDERED: ONDANSETRON HCL 4 MG/2 ML VIAL IV PUSH ONE (12:00)
[2016-10-14] MEDS ORDERED: PHENYLEPH/NS 1000 MCG/10 ML SYR IV ONE (12:00)
[2016-10-14] MEDS ORDERED: PROPOFOL 200 MG/20 ML AMP IV ONE (12:00)
[2016-10-14] MEDS: MORPHINE SULFATE 4 MG/ML INJ IV PUSH PRN (14:08)
--- NOTE | 2016-10-14 15:18 | PD.CAR.PN ---
CVT Progress Note Subjective/Hospital Course: 76 male hx of (1) Aortic valve stenosis with insufficiency, (2) Diastolic CHF due to valvular disease, no significant CAD per Heart cath other past medical hx : COPD on inhalers, DM on insulin and oral meds , HTN HLP tobacco abuse, Afib on eliquis at home EF 35-40% surgery: Minimally invasive AVR with a 23 Trifecta tissue valve, Left fem-fem cannulation for CPB, MARIYA 09/29 pt had small apical ptx subq emphysema post surgery , required additional suture at chest tube site, postop, continued to have some subq emphysema , PTX resolved chest tube dc , vaseline pressure applied CT chest was done small pneumomediastinum , extensive subq air, pt improved over the course of a couple of days and was restarted on eliquis for his hx afib dc home on 10/07 with [facility] , still with some subq emphysema to right chest arm , and neck area pt apparently fell at home causing a intertrochanteric fracture of prox right femur and was taken to [facility] in [place], they repeated CT chest which still showed some evidence of pneumomediastinum and extensive sub q air he was transferred to our facility 2/2 recent AVR and concern for the pneumomediastinum which is improving, and clinical eval of subq emphysema is also improving he is currently doing well and recovering from his recent surgery. Unfortunately now requires repair of right hip fx He is currently stable from a CVS standpoint to have repair of Right hip, the subq emphysema will continue to improve , CV surgery warranted at this time, or intervention continue curretn meds, with exception of eliquis, and agree with heparin gtt to bridge for surgery at this time 2/2 scheduled for surgery today to repair right hip fx Objective: GENERAL: SKIN: Warm and dry. incision right upper chest wall intact and well approximated sub q emphysema improving to right shoulder chest and neck HEAD: Normocephalic. EYES: No scleral icterus. No injection or drainage. NECK: Supple, trachea midline. No JVD or lymphadenopathy. CARDIOVASCULAR: irregular rate and rhythm without murmurs, gallops, or rubs. RESPIRATORY: Breath sounds equal bilaterally. No accessory muscle use. GASTROINTESTINAL: Abdomen soft, non-tender, nondistended. MUSCULOSKELETAL: No cyanosis, or edema. / swelling and right leg shortening BACK: Nontender without obvious deformity. No CVA tenderness. Vital Signs Date Time Temp Pulse Resp B/P Pulse Ox O2 Delivery O2 Flow Rate FiO2 10/14/16 12:00 96.9 77 18 97/53 92 10/14/16 10:04 91 10/14/16 08:45 97.4 82 18 102/58 92 10/14/16 04:00 97.3 80 18 87/54 90 10/14/16 00:00 98.0 79 18 114/62 94 10/13/16 20:00 98.8 88 18 110/58 93 10/13/16 17:10 98.0 78 18 98/62 99 10/13/16 15:48 98.0 77 16 90/58 99 Room Air 3 Labs: Laboratory Tests Test 10/14/16 10/14/16 04:57 10:45 Activated Partial 44.6 SEC 42.4 SEC Thromboplast Time (24.3-30.1) (24.3-30.1) Result Diagram: 10/13/16 0435 10/13/16 0435 (1) Pneumomediastinum Plan: improving (2) S/P AVR (aortic valve replacement) Plan: continue pulm toileting home meds (3) Fracture, intertrochanteric, right femur Plan: for surgery today per Dr Sanders Problem Qualifiers (1) Fracture, intertrochanteric, right femur: Qualified Code: S72.141A - Fracture, intertrochanteric, right femur, closed, initial encounter Mini Bacon Oct 14, 2016 15:18
[2016-10-14 16:15] VITALS: BP 113/69; PULSE 75; RESP 18; TEMP 97.1; O2SAT 92
[2016-10-14] MEDS ORDERED: SODIUM CHLORIDE 0.9% 20 ML VIAL ONE (18:12)
[2016-10-14] MEDS ORDERED: GENTAMICIN SULFATE 80 MG/2 ML VIAL ONE ×2 (18:12→21:42)
--- NOTE | 2016-10-14 18:43 | HHI.PR ---
Subjective Remarks Shelly Omalley and pelvis with movement otherwise been controlled Patient had one episode of low BP. Denies chest pain or shortness of breath Studies of his neck is a smaller Objective Vitals Vital Signs Date Time Temp Pulse Resp B/P Pulse Ox O2 Delivery O2 Flow Rate FiO2 10/14/16 16:15 97.1 75 18 113/69 92 10/14/16 12:00 96.9 77 18 97/53 92 10/14/16 10:04 91 10/14/16 08:45 97.4 82 18 102/58 92 10/14/16 04:00 97.3 80 18 87/54 90 10/14/16 00:00 98.0 79 18 114/62 94 10/13/16 20:00 98.8 88 18 110/58 93 I/O 10/13/16 10/13/16 10/13/16 10/14/16 10/14/16 10/14/16 07:00 15:00 23:00 07:00 15:00 23:00 Intake Total 0 ml 380 ml 240 ml 195 ml Output Total 300 ml 1600 ml 200 ml Balance -300 ml -1220 ml 240 ml -5 ml Intake Oral 380 ml 240 ml 120 ml IV Total 0 ml 75 ml Output Urine Total 300 ml 1600 ml 200 ml # Voids 1 3 2 1 # Bowel Movements 0 Result Diagram: 10/13/16 0435 10/13/16 0435 Imaging Last Impressions Hip and Pelvis X-Ray 10/12/16 0000 Signed Impressions: Service Date/Time: Wednesday, October 12, 2016 22:59 - CONCLUSION: Intertrochanteric fracture of the proximal right femur with mild medial angulation deformity. Owen Velasco MD Objective Remarks GENERAL: This is a well-nourished, well-developed patient, in no apparent distress. SKIN: Multiple subcutaneous emphysema all throughout his chest and bilateral upper extremity. He HEAD: Atraumatic. Normocephalic. No temporal or scalp tenderness. EYES: No scleral icterus. No injection or drainage. ENT: Nose without bleeding, purulent drainage or septal hematoma. Airway patent. NECK: Trachea midline. No JVD CARDIOVASCULAR: Regular rate and rhythm without murmurs, gallops, or rubs. Surgical incision scar and right parasternal area clean. RESPIRATORY: Clear to auscultation. Breath sounds equal bilaterally. No wheezes , rales, or rhonchi. GASTROINTESTINAL: Abdomen soft, non-tender, nondistended. No guarding.. Musculoskeletal: No calf asymmetry or edema. Right hip pain NEUROLOGICAL: Awake and alert. Motor and sensory grossly within normal limits.Normal speech. Medications and IVs Current Medications Medications (Trade) Dose Ordered Sig/Ni Route Start Time Stop Time Status Last Admin (NS Flush) 2 ml UNSCH PRN FLUSH 10/12/16 22:15 (NS Flush) 2 ml BID FLUSH 10/13/16 09:00 10/14/16 09:18 (Narcan Inj) 0.4 mg UNSCH PRN IV 10/12/16 22:15 (Morphine Inj) 2 mg Q3H PRN IV PUSH 10/12/16 22:15 10/14/16 14:08 (D50w (Vial) Inj) 25 ml UNSCH PRN IV PUSH 10/13/16 08:00 (Glucagon Inj) 1 mg UNSCH PRN OTHER 10/13/16 08:00 (Lipitor) 40 mg HS PO 10/13/16 21:00 10/13/16 21:08 (Coreg) 6.25 mg BID PO 10/13/16 09:00 10/13/16 09:20 (Pepcid) 20 mg DAILY PO 10/13/16 09:00 10/14/16 09:17 (Lasix) 40 mg DAILY PO 10/13/16 09:00 10/13/16 09:20 (Imdur) 30 mg DAILY PO 10/13/16 09:00 10/13/16 09:20 (KCl) 20 meq DAILY PO 10/13/16 09:00 10/14/16 09:17 (Altace) 5 mg DAILY PO 10/13/16 09:00 10/14/16 09:17 (Flomax) 0.4 mg HS PO 10/13/16 21:00 10/13/16 21:09 Patient Own Medication PT OWN MED: Teriparatide (Recombina... DAILY SQ 10/14/16 09:00 Hold Heparin Sodium/ Dextrose 250 ml @ 0 mls/hr TITRATE IV 10/13/16 08:00 Hold 10/14/16 06:56 Lactated Ringer's 1,000 ml @ 30 mls/hr Q24H IV 10/14/16 09:15 10/14/16 18:25 (NS 500 ml Inj) 500 ml @ 30 mls/hr [id number] IV 10/14/16 09:15 10/15/16 09:14 Urinary Catheter: No A/P Problem List: (1) Fracture, intertrochanteric, right femur ICD Code: S72.141A Status: Acute Plan: Patient is status post fall and intratrochanteric fracture of the right femur. Orthopedic risk and insurance consultant. Continue pain control with IV Dilaudid. Patient has been evaluated by CT surgery and cleared for surgery. Hold liquids, patient has been bridged with heparin for surgery. Patient for or today as per orthopedic surgery. (2) S/P AVR (aortic valve replacement) ICD Code: Z95.2 Status: Acute Plan: Patient status post aortic valve replacement with his swallowing some cutaneous emphysema widened mediastinum. As per CT surgery this is getting better and patient is cleared to have surgical procedure. (3) Hyperlipidemia ICD Code: E78.5 Status: Chronic Plan: Continue statin (4) Diabetes ICD Code: E11.9 Status: Chronic Plan: Continues SSI with subcutaneous insulin and monitor Accu-Cheks. (5) HTN (hypertension) ICD Code: I10 Status: Chronic Plan: Patient has had some episodes of hypotension. Continue antihypertensive medications with holding parameters. (6) COPD (chronic obstructive pulmonary disease) ICD Code: J44.9 Status: Acute Plan: Seems to be stable. I will Rx DuoNeb's when necessary. (7) Atrial fibrillation ICD Code: I48.91 Status: Chronic Plan: If her fibrillation on chronic and the correlation with liquids which has been held. The patient on IV heparin drip. Patient now in sinus rhythm, monitor on telemetry. Problem Qualifiers (1) Fracture, intertrochanteric, right femur: Qualified Code: S72.141A - Fracture, intertrochanteric, right femur, closed, initial encounter (2) Diabetes: (3) HTN (hypertension): Qualified Code: I10 - Essential hypertension (4) Atrial fibrillation: Qualified Code: I48.0 - Paroxysmal atrial fibrillation Jonh Kilgore MD Oct 14, 2016 18:43
[2016-10-14] MEDS ORDERED: ACETAMINOPHEN 1000 MG/100 ML VIAL IV ONE (20:28)
[2016-10-14] MEDS ORDERED: HYDROmorphone HCL PF 2 MG/ML VIAL ONE (20:28)
[2016-10-14] MEDS: TAMSULOSIN HCL 0.4 MG CAP PO SCH (20:50)
[2016-10-14] MEDS: ATORVASTATIN 40 MG TAB PO SCH (20:50)
[2016-10-14] MEDS ORDERED: ceFAZolin INJ 1,000 MG VIAL IV ONE (21:00)
--- NOTE | 2016-10-14 22:03 | PD.OP ---
cc: Rocky Sanders MD Operative Report Date of Surgery: Oct 14, 2016 Preoperative Diagnosis: (1) Fracture, intertrochanteric, right femur Postoperative Diagnosis: (1) Fracture, intertrochanteric, right femur Procedure: Trochanteric nail fixation right proximal femur fracture Implants used: Synthes 11 x 130 troch nail Anesthesia: Gen. Surgeon: Rocky Sanders Heat And Frost Insulator(s): Beata Winston PA-C (Ashley) The surgical procedure was assisted by my physician's advertising assistant. Her presence was necessary throughout the case for manipulation and positioning of the surgical extremity. My PA was assisting me throughout the duration of this procedure. The skill set of the physician advertising assistant was medically necessary to complete this procedure. During the surgical case the medical surgical tech was working at the back table and the physician advertising assistant was directly assisting me. Operation and Findings: Indications: This 76-year-old male who is recently status post an aortic valve replacement fell on the day of admission injuring his right hip. Patient had pain and inability ambulate. He initially presented to [facility]. Because of his recent cardiac surgery he was transferred to [facility] for definitive care. Recommendations are for internal fixation to allow mobilization and pain control. Procedure and findings: The patient was taken to the operative suite and after undergoing an adequate level of general anesthesia was placed supine on the fracture table. The right lower extremity was positioned in skin traction and the preoperative reduction checked in both the AP and lateral planes with the C- arm. It was then prepped and draped in usual sterile fashion with ChloraPrep. Preoperative antibiotic consisted of Ancef 2 g IV. An incision was made over the lateral aspect of the hip extending from the greater trochanter for distance approximately 3 cm. This was carried down to skin and subcutaneous tense tissue with a knife. Hemostasis was obtained electrocautery. The muscular fascia was incised and split longitudinally. An entry point was selected at the tip of the greater trochanter. This was entered with a threaded guidepin. The position was checked in both the AP and lateral planes with the C-arm. It was subsequently overdrilled. An 11 x 130 Synthes trochanteric nail was then impacted in the place. Utilizing the outrigger device an additional incision was made distally. A threaded guidepin was advanced through the lateral cortex, across the nail, into the femoral neck and seated in the subchondral bone of the femoral head. The position was checked in both the AP and lateral planes with the C-arm. A measurement was then made. A 100 helical blade was selected. The lateral cortex was overdrilled. The helical blade was then impacted in the place. The locking mechanism was then seated proximally. Utilizing the outrigger device, the same distal incision was used for interlocking. A trocar was placed against the lateral cortex. The distal interlocking screw hole was drilled and the appropriate length screw placed. The position of the fracture reduction and placement of the internal fixation were checked in both the AP and lateral planes with the C-arm. The wounds were then thoroughly irrigated. They were closed in layers utilizing 0 Vicryl suture on the muscular fascia, 2-0 Vicryl suture on the subcutaneous tense tissue and roge on the skin. Sterile dressings were applied, the patient was awakened, transferred to the hospital bed and taken to the recovery room in stable condition. Estimated blood loss: Less than 100 cc Complications: None Rocky Sanders MD Oct 14, 2016 22:03
[2016-10-14] MEDS ORDERED: TEMAZEPAM 15 MG CAP PO PRN (22:15)
[2016-10-14] MEDS ORDERED: MORPHINE SULFATE 8 MG/ML INJ IV PUSH PRN (22:15)
[2016-10-14] MEDS ORDERED: ALUMINUM/MAGNESIUM/SIMETH 30 ML CUP PO PRN (22:15)
[2016-10-14] MEDS ORDERED: ACETAMINOPHEN/HYDROcodone 325 MG/5 MG TAB PO PRN (22:15)
[2016-10-14] MEDS ORDERED: ONDANSETRON HCL 4 MG/2 ML VIAL IVP PRN (22:15)
[2016-10-14] MEDS ORDERED: ACETAMINOPHEN 325 MG TAB PO PRN (22:15)
[2016-10-14] MEDS ORDERED: POVIDONE IODINE 10% SOLN 118 ML BOTTLE TOPICAL PRN (22:15)
[2016-10-14] MEDS ORDERED: MAGNESIUM HYDROXIDE SUSP 30 ML CUP PO PRN (22:15)
[2016-10-14] MEDS ORDERED: Post-op Orders (for Pharmacy) MISC XX ONE (22:15)
[2016-10-14] MEDS ORDERED: SODIUM CHLORIDE 0.9% FLUSH 5 ML FLUSH IVF PRN (22:15)
[2016-10-14] MEDS ORDERED: BISACODYL 10 MG SUPP PR PRN (22:15)
[2016-10-14] MEDS ORDERED: *RESP: ALBUTEROL 2.5 MG/3 ML NEB (PRN) PERIprocedural Use ONLY NEB ONE (22:26)
[2016-10-14] MEDS ORDERED: DO NOT ADM ANY ANTICOAGULANT DRUGS XX PRN (22:30)
[2016-10-14] MEDS: LACTATED RINGER'S 1000 ML INJ 1,000 ML IV SCH (22:45)
--- NOTE | 2016-10-14 23:01 | RADRPT ---
EXAM DATE/TIME: 10/14/2016 21:12 [facility] COMPARISON: HIP RIGHT (AP&LAT 2/3VWS) W AP PELVIS, October 12, 2016, 22:59. INDICATIONS : Open reduction right hip. MEDICAL HISTORY : None. SURGICAL HISTORY : None. ENCOUNTER: Subsequent ACUITY: 2 days PAIN SCORE: Non-responsive. LOCATION: Right pelvis FINDINGS: Nail and altaf fixation of the intertrochanteric fracture of the right femur. Alignment is near-anatomi c. No acute complication seen. Femoral head remains intact. No subluxation. CONCLUSION: Interim nail and altaf fixation of the right intertrochanteric fracture. Alignment is near-anatomic. Owen Velasco MD on October 14, 2016 at 22:58 Board Certified Radiologist. This report was verified electronically.
[2016-10-15] VITALS (8 sets, daily range): BP systolic 84–149; BP diastolic 53–67; PULSE 77–87; RESP 18–20; TEMP 95.4–98.7; O2SAT 92–94
[2016-10-15 06:33] LABS: AUTOMATED NEUTROPHIL # 11.1 TH/MM3 (1.8-7.7); BASOPHIL % 0.2 % (0.0-2.0); EOSINOPHIL % 0.1 % (0.0-4.0); HEMATOCRIT 36.8 % (39.0-51.0); HEMO FLAGS DIFF FINAL; LYMPH % 2.9 % (9.0-44.0); LYMPHOCYTE # 0.3 TH/MM3 (1.0-4.8); MEAN CELL VOLUME 87.7 FL (80.0-100.0); MEAN CORPUSCULAR HEMOGLOBIN 29.6 PG (27.0-34.0); MEAN CORPUSCULAR HGB CONC 33.7 % (32.0-36.0); MONO % 1.5 % (0.0-8.0); NEUT % 95.3 % (16.0-70.0); PLATELET COUNT 219 TH/MM3 (150-450); WHITE BLOOD COUNT 11.7 TH/MM3 (4.0-11.0)
[2016-10-15] MEDS: INSULIN ASPART SUPPLEMENTAL SCALE SQ SCH ×4 (06:43→20:30)
[2016-10-15 06:49] LABS: ALT (GPT) 16 U/L (12-78); ANION GAP 7 MEQ/L (5-15); AST (GOT) 15 U/L (15-37); BICARBONATE 28.5 MEQ/L (21.0-32.0); BLOOD UREA NITROGEN 16 MG/DL (7-18); CHLORIDE 101 MEQ/L (98-107); GLOMERULAR FILTRATION RATE 75 ML/MIN (>89); MAGNESIUM 1.6 MG/DL (1.5-2.5); POTASSIUM 4.5 MEQ/L (3.5-5.1); SODIUM (NA) 136 MEQ/L (136-145)
[2016-10-15 06:51] LABS: ALKALINE PHOSPHATASE 59 U/L (45-117); TOTAL BILIRUBIN ADULT 0.3 MG/DL (0.2-1.0)
--- NOTE | 2016-10-15 07:49 | PD.ORT.PN ---
Subjective Post Op Day #: 1 Subjective Remarks Pt laying comfortably in bed, awake and alert. Admits to no pain in RLE. Progressing very well s/p trochanteric nail fixation right proximal femur fracture. No other complaints noted. Objective Vitals Vital Signs Date Time Temp Pulse Resp B/P Pulse Ox O2 Delivery O2 Flow Rate FiO2 10/15/16 04:00 97.2 87 18 98/59 92 10/15/16 02:00 85 10/15/16 00:00 97.5 77 18 94/55 92 10/14/16 23:15 97.6 90 15 108/75 95 Nasal Cannula 3 10/14/16 23:00 87 16 105/76 96 Nasal Cannula 3 10/14/16 22:45 92 17 102/69 97 Nasal Cannula 3 10/14/16 22:30 94 19 101/68 95 Aerosol Mask 8 10/14/16 22:20 97.6 96 20 103/74 92 Nasal Cannula 3 10/14/16 16:15 97.1 75 18 113/69 92 10/14/16 12:00 96.9 77 18 97/53 92 10/14/16 10:04 91 10/14/16 08:45 97.4 82 18 102/58 92 I/O 10/14/16 10/14/16 10/14/16 10/15/16 10/15/16 10/15/16 07:00 15:00 23:00 07:00 15:00 23:00 Intake Total 240 ml 195 ml 600 ml 240 ml Output Total 350 ml 280 ml Balance 240 ml -155 ml 320 ml 240 ml Intake Oral 240 ml 120 ml 240 ml IV Total 75 ml 100 ml Other 500 ml Output Urine Total 350 ml 250 ml Estimated Blood Loss 30 ml # Voids 2 1 2 2 Result Diagram: 10/15/16 0606 10/15/16 0606 Imaging Last 48 hours Impressions Hip X-Ray 10/14/16 0000 Signed Impressions: Service Date/Time: October 21:12 - CONCLUSION: Interim nail and altaf fixation of the right intertrochanteric fracture. Alignment is near-anatomic. Owen Velasco MD Procedures Trochanteric nail fixation right proximal femur fracture (10/15/16) Objective Remarks RLE: Dressing dry and intact. Mild tenderness and swelling noted over incision site. No ecchymosis, warmth or erythema noted. Patient able to move ankle and knee with minimal pain. 2+ pedal pulses. Sensation intact. No calf pain. Negative Apurva's. Neurovascular intact. Assessment & Plan Ortho Post Op Day #: 1 Problem List: (1) Aortic valve stenosis with insufficiency (2) Diabetes mellitus (3) Hyperlipemia (4) Hypertension (5) hx afib (6) Diastolic CHF due to valvular disease (7) Pneumomediastinum (8) Fracture, intertrochanteric, right femur (9) S/P AVR (aortic valve replacement) Assessment and Plan Ortho status stable POD #1. Progress rehabilitation - walk with assistance before d/c. Continue Eliquis for DVT prophylaxis, pain management and bowel management. Appreciate medical team involvement in patient's care. Discharge planning - most likely with home health. Beata Winston Oct 15, 2016 07:49
[2016-10-15] MEDS: ACETAMINOPHEN/HYDROcodone 325 MG/5 MG TAB PO PRN ×2 (07:51→15:38)
[2016-10-15] MEDS ORDERED: WALKER WHEELS/F1 MIS (07:55)
[2016-10-15] MEDS: ISOSORBIDE MONONITRATE 30 MG TAB PO SCH (08:41)
[2016-10-15] MEDS: RAMIPRIL 5 MG CAP PO SCH (08:42)
[2016-10-15] MEDS: POTASSIUM CHLORIDE 20 MEQ CONTROLLED RELEASE TAB PO SCH (08:44)
[2016-10-15] MEDS: FAMOTIDINE 20 MG TAB PO SCH (08:44)
[2016-10-15] MEDS: FUROSEMIDE 40 MG TAB PO SCH (08:44)
[2016-10-15] MEDS: CARVEDILOL 6.25 MG TAB PO SCH (08:45)
[2016-10-15] MEDS: SODIUM CHLORIDE 0.9% FLUSH 5 ML FLUSH IVF SCH ×2 (08:45→20:31)
[2016-10-15] MEDS: LACTATED RINGER'S 1000 ML INJ 1,000 ML IV SCH ×2 (10:33→23:03)
--- NOTE | 2016-10-15 17:37 | HHI.FF ---
Face to Face Verification Diagnosis: (1) Fracture, intertrochanteric, right femur (2) HTN (hypertension) (3) Hyperlipidemia (4) Diabetes (5) Atrial fibrillation (6) COPD (chronic obstructive pulmonary disease) Physical Therapy Order: Improve ambulation, Strength and gait training Home Health Nursing Order: Wound care and dressing changes Nursing assessment with vital signs I have seen patient Arron Rollins on 10/15/16. My clinical findings support the need for the requested home health care services because: High risk of falls I certify that my clinical findings support that this patient is homebound because: Post-op weakness Unsafe to leave home unassisted Unable to use public transportation Jonh Kilgore MD Oct 15, 2016 17:37
[2016-10-15] MEDS ORDERED: SODIUM CHLORID 0.9% 500 ML INJ 500 ML IV ONE (18:15)
[2016-10-15] MEDS: ATORVASTATIN 40 MG TAB PO SCH (20:30)
[2016-10-15] MEDS: APIXABAN 5 MG TABLET PO SCH (20:30)
[2016-10-15] MEDS: TAMSULOSIN HCL 0.4 MG CAP PO SCH (20:30)
[2016-10-16] VITALS: BP 113/62; PULSE 70; PULSE 84; RESP 16; TEMP 98.1; TEMP 98.7; O2SAT 93
[2016-10-16 04:00] VITALS: BP 117/61; PULSE 68; RESP 20; TEMP 96.1; O2SAT 93
[2016-10-16] MEDS: INSULIN ASPART SUPPLEMENTAL SCALE SQ SCH ×4 (06:05→20:43)
--- NOTE | 2016-10-16 08:29 | PD.ORT.PN ---
Subjective Subjective Remarks pt doing better would like to be discharge home today Objective Vitals Vital Signs Date Time Temp Pulse Resp B/P Pulse Ox O2 Delivery O2 Flow Rate FiO2 10/16/16 04:00 96.1 68 20 117/61 93 10/16/16 00:00 98.7 70 16 113/62 93 10/15/16 20:00 97.5 77 18 106/57 93 10/15/16 20:00 78 10/15/16 20:00 97.5 77 18 106/57 93 10/15/16 15:45 98.7 80 19 93/57 94 10/15/16 11:37 79 10/15/16 11:35 95.4 85 19 84/53 94 I/O 10/15/16 10/15/16 10/15/16 10/16/16 10/16/16 10/16/16 07:00 15:00 23:00 07:00 15:00 23:00 Intake Total 240 ml 480 ml Output Total 300 ml 400 ml Balance 240 ml 180 ml -400 ml Intake Oral 240 ml 480 ml Output Urine Total 300 ml 400 ml # Voids 2 # Bowel Movements 0 Result Diagram: 10/15/16 0606 10/15/16 0606 Imaging Last 48 hours Impressions Hip X-Ray 10/14/16 0000 Signed Impressions: Service Date/Time: October 21:12 - CONCLUSION: Interim nail and altaf fixation of the right intertrochanteric fracture. Alignment is near-anatomic. Owen Velasco MD Procedures Trochanteric nail fixation right proximal femur fracture (10/15/16) Objective Remarks seen by Dr. Anuel Clinton RLE: Dressing dry and intact. 2+ pedal pulses. Sensation intact. No calf pain. Negative Apurva's. Neurovascular intact. Assessment & Plan Problem List: (1) Aortic valve stenosis with insufficiency (2) Diabetes mellitus (3) Hyperlipemia (4) Hypertension (5) hx afib (6) Diastolic CHF due to valvular disease (7) Pneumomediastinum (8) Fracture, intertrochanteric, right femur (9) S/P AVR (aortic valve replacement) Assessment and Plan Ortho status stable POD #2 right hip ORIF Continue Eliquis for DVT prophylaxis, pain management and bowel management. discharge home today, orthopedically stable f/u with Dr. Marilyn Pruitt,Eboni JAIME Oct 16, 2016 08:29
[2016-10-16 08:46] VITALS: BP 109/59; PULSE 71; RESP 18; TEMP 96.6; O2SAT 92
[2016-10-16 08:46] LABS: AUTOMATED NEUTROPHIL # 9.7 TH/MM3 (1.8-7.7); BASOPHIL % 0.4 % (0.0-2.0); EOSINOPHIL # 0.4 TH/MM3 (0-0.4); EOSINOPHIL % 3.2 % (0.0-4.0); HEMATOCRIT 34.1 % (39.0-51.0); HEMO FLAGS DIFF FINAL; LYMPH % 7.2 % (9.0-44.0); LYMPHOCYTE # 0.8 TH/MM3 (1.0-4.8); MEAN CELL VOLUME 88.1 FL (80.0-100.0); MONO % 4.8 % (0.0-8.0); NEUT % 84.4 % (16.0-70.0); PLATELET COUNT 233 TH/MM3 (150-450); RED BLOOD COUNT 3.87 MIL/MM3 (4.50-5.90); RED CELL DISTRIBUTION WIDTH 14.4 % (11.6-17.2); WHITE BLOOD COUNT 11.5 TH/MM3 (4.0-11.0)
[2016-10-16] MEDS: ISOSORBIDE MONONITRATE 30 MG TAB PO SCH (08:55)
[2016-10-16] MEDS: POTASSIUM CHLORIDE 20 MEQ CONTROLLED RELEASE TAB PO SCH (08:55)
[2016-10-16] MEDS: DOCUSATE SODIUM 100 MG CAP PO SCH ×2 (08:55→20:44)
[2016-10-16] MEDS: FAMOTIDINE 20 MG TAB PO SCH (08:55)
[2016-10-16] MEDS: FUROSEMIDE 40 MG TAB PO SCH (08:55)
[2016-10-16] MEDS: MULTIVITAMINS/MINERALS THERAPEUTIC TAB PO SCH ×2 (08:55→20:44)
[2016-10-16] MEDS: SODIUM CHLORIDE 0.9% FLUSH 5 ML FLUSH IVF SCH ×2 (08:56→20:44)
[2016-10-16] MEDS: APIXABAN 5 MG TABLET PO SCH ×3 (08:56→20:44)
[2016-10-16] MEDS: LACTATED RINGER'S 1000 ML INJ 1,000 ML IV SCH (08:58)
[2016-10-16 09:19] LABS: ALKALINE PHOSPHATASE 59 U/L (45-117); ALT (GPT) 14 U/L (12-78); ANION GAP 6 MEQ/L (5-15); AST (GOT) 17 U/L (15-37); BICARBONATE 29.5 MEQ/L (21.0-32.0); BLOOD UREA NITROGEN 23 MG/DL (7-18); CHLORIDE 103 MEQ/L (98-107); GLOMERULAR FILTRATION RATE 62 ML/MIN (>89); MAGNESIUM 1.8 MG/DL (1.5-2.5); POTASSIUM 4.6 MEQ/L (3.5-5.1); SODIUM (NA) 138 MEQ/L (136-145); TOTAL BILIRUBIN ADULT 0.3 MG/DL (0.2-1.0)
[2016-10-16 12:26] VITALS: BP 89/54; PULSE 72; RESP 18; TEMP 96.5; O2SAT 92
--- NOTE | 2016-10-16 15:37 | HHI.PR ---
Subjective Remarks Deferred entry - patient seen on 10/15/16 at Patient's bp low denies cp sob pain controlled Objective Vitals Vital Signs Date Time Temp Pulse Resp B/P Pulse Ox O2 Delivery O2 Flow Rate FiO2 10/16/16 12:26 96.5 72 18 89/54 92 10/16/16 08:46 96.6 71 18 109/59 92 10/16/16 04:00 96.1 68 20 117/61 93 10/16/16 00:00 98.7 70 16 113/62 93 10/15/16 20:00 97.5 77 18 106/57 93 10/15/16 20:00 78 10/15/16 20:00 97.5 77 18 106/57 93 10/15/16 15:45 98.7 80 19 93/57 94 I/O 10/15/16 10/15/16 10/15/16 10/16/16 10/16/16 10/16/16 07:00 15:00 23:00 07:00 15:00 23:00 Intake Total 240 ml 480 ml 240 ml Output Total 300 ml 400 ml Balance 240 ml 180 ml -400 ml 240 ml Intake Oral 240 ml 480 ml 240 ml Output Urine Total 300 ml 400 ml # Voids 2 3 # Bowel Movements 0 1 Result Diagram: 10/16/16 0814 10/16/1614 Objective Remarks GENERAL: This is a well-nourished, well-developed patient, in no apparent distress. SKIN: Multiple subcutaneous emphysema all throughout his chest and bilateral upper extremity. He HEAD: Atraumatic. Normocephalic. No temporal or scalp tenderness. EYES: No scleral icterus. No injection or drainage. ENT: Nose without bleeding, purulent drainage or septal hematoma. Airway patent. NECK: Trachea midline. No JVD CARDIOVASCULAR: Regular rate and rhythm without murmurs, gallops, or rubs. Surgical incision scar and right parasternal area clean. RESPIRATORY: Clear to auscultation. Breath sounds equal bilaterally. No wheezes , rales, or rhonchi. GASTROINTESTINAL: Abdomen soft, non-tender, nondistended. No guarding.. Musculoskeletal: No calf asymmetry or edema. Right hip pain NEUROLOGICAL: Awake and alert. Motor and sensory grossly within normal limits.Normal speech. A/P Problem List: (1) Fracture, intertrochanteric, right femur ICD Code: S72.141A Status: Acute (2) S/P AVR (aortic valve replacement) ICD Code: Z95.2 Status: Acute (3) Hyperlipidemia ICD Code: E78.5 Status: Chronic (4) Diabetes ICD Code: E11.9 Status: Chronic (5) HTN (hypertension) ICD Code: I10 Status: Chronic (6) COPD (chronic obstructive pulmonary disease) ICD Code: J44.9 Status: Acute (7) Atrial fibrillation ICD Code: I48.91 Status: Chronic (8) Hypotension ICD Code: I95.9 Status: Acute Plan: Patient with systolic blood pressure in the mid 80s. I will hold BP meds , give 1 L IV fluid bolus of normal saline. Continue to monitor vital signs. Assessment and Plan (1) Fracture, intertrochanteric, right femur Plan: Patient is status post fall and intratrochanteric fracture of the right femur. Orthopedic apartment leasing consultant. Continue pain control with IV Dilaudid. Patient has been evaluated by CT surgery and cleared for surgery. Hold liquids, patient has been bridged with heparin for surgery. The patient is status post ORIF of the right hip. Cleared by orthopedic surgery to be discharged home. (2) S/P AVR (aortic valve replacement) Plan: Patient status post aortic valve replacement with his swallowing some cutaneous emphysema widened mediastinum. As per CT surgery this is getting better and patient is cleared to have surgical procedure. (3) Hyperlipidemia Plan: Continue statin (4) Diabetes Plan: Continues SSI with subcutaneous insulin and monitor Accu-Cheks. (5) HTN (hypertension) Plan: Patient has had some episodes of hypotension. Continue antihypertensive medications with holding parameters. (6) COPD (chronic obstructive pulmonary disease) Plan: Seems to be stable. I will Rx DuoNeb's when necessary. (7) Atrial fibrillation Plan: Paroxysmal defibrillation, the patient was placed on heparin IV heparin drip which has been discontinued. Patient now in sinus rhythm, continue Eliquis. Problem Qualifiers (1) Fracture, intertrochanteric, right femur: Qualified Code: S72.141A - Fracture, intertrochanteric, right femur, closed, initial encounter (2) Diabetes: (3) HTN (hypertension): Qualified Code: I10 - Essential hypertension (4) Atrial fibrillation: Qualified Code: I48.0 - Paroxysmal atrial fibrillation Jonh Kilgore MD Oct 16, 2016 15:37
--- NOTE | 2016-10-16 16:15 | HHI.PR ---
Subjective Remarks Follow-up for hypotension. at bedside. The patient was noted to be hypotensive today. He denies any history of heart attack or cardiac stenting in the past. He reports subcutaneous emphysema continues to improve. Objective Vitals Vital Signs Date Time Temp Pulse Resp B/P Pulse Ox O2 Delivery O2 Flow Rate FiO2 10/16/16 12:26 96.5 72 18 89/54 92 10/16/16 08:46 96.6 71 18 109/59 92 10/16/16 04:00 96.1 68 20 117/61 93 10/16/16 00:00 98.7 70 16 113/62 93 10/15/16 20:00 97.5 77 18 106/57 93 10/15/16 20:00 78 10/15/16 20:00 97.5 77 18 106/57 93 I/O 10/15/16 10/15/16 10/15/16 10/16/16 10/16/16 10/16/16 07:00 15:00 23:00 07:00 15:00 23:00 Intake Total 240 ml 480 ml 240 ml Output Total 300 ml 400 ml Balance 240 ml 180 ml -400 ml 240 ml Intake Oral 240 ml 480 ml 240 ml Output Urine Total 300 ml 400 ml # Voids 2 3 # Bowel Movements 0 1 Result Diagram: 10/16/16 0814 10/16/16 0814 Imaging Last Impressions Hip X-Ray 10/14/16 0000 Signed Impressions: Service Date/Time: October 21:12 - CONCLUSION: Interim nail and altaf fixation of the right intertrochanteric fracture. Alignment is near-anatomic. Owen Velasco MD Hip and Pelvis X-Ray 10/12/16 0000 Signed Impressions: Service Date/Time: Wednesday, October 12, 2016 22:59 - CONCLUSION: Intertrochanteric fracture of the proximal right femur with mild medial angulation deformity. Owen Velasco MD Objective Remarks GENERAL: Well-developed well-nourished. In no acute distress. SKIN: Subcutaneous emphysema chest and bilateral upper extremities. HEENT: Normocephalic. Pupils equal and round. Mucous membranes pink and moist. CARDIOVASCULAR: Regular rate and rhythm. No murmur appreciated. RESPIRATORY: No accessory muscle use. Clear to auscultation. Breath sounds equal bilaterally. GASTROINTESTINAL: Abdomen soft, non-tender, nondistended. Bowel sounds x4. MUSCULOSKELETAL: No obvious deformities. No clubbing or cyanosis. No edema. NEUROLOGICAL: Awake and alert. No focal neurological deficits. Moves upper and lower extremities spontaneously. Normal speech. PSYCHIATRIC: Appropriate mood and affect; insight and judgment normal. A/P Problem List: (1) Fracture, intertrochanteric, right femur ICD Code: S72.141A Status: Acute (2) S/P AVR (aortic valve replacement) ICD Code: Z95.2 Status: Acute (3) Hyperlipidemia ICD Code: E78.5 Status: Chronic (4) Diabetes ICD Code: E11.9 Status: Chronic (5) HTN (hypertension) ICD Code: I10 Status: Chronic (6) COPD (chronic obstructive pulmonary disease) ICD Code: J44.9 Status: Acute (7) Atrial fibrillation ICD Code: I48.91 Status: Chronic (8) Hypotension ICD Code: I95.9 Status: Acute Assessment and Plan 76-year-old male with: Intertrochanteric fracture right femur: Orthopedics consulted, performed trochanteric nail fixation right proximal femur fracture 10/14/16. Cleared by orthopedics for DC. Continue pain control with [place] as needed. Status post recent aortic valve replacement: CT surgery consulted and cleared patient for orthopedic procedure as above. Atrial fibrillation: Was heparin bridged prior to surgery, DC heparin. Resume Eliquis. Hypotension: Continue carvedilol as patient has a history of EF 35% and atrial fibrillation. Decrease home Carvedilol dose and add hold parameters. Hold Ramipril, Imdur, Lasix. Monitor and adjust medications as needed. Caution with hypotension with recent surgeries. Diabetes mellitus: Covered with sliding scale and monitor with Accu-Cheks. Written by Butch Martin, acting as scribe for Dr. Estrada on 10/16/16 at 16:14. Discharge Planning Hopefully discharge planning tomorrow if BP is improved. Discussed with patient , , RN. Attending Statement The documentation accurately reflects the work performed [id number] by me on 10/16/16 at 16:14. Problem Qualifiers (1) Fracture, intertrochanteric, right femur: Qualified Code: S72.141A - Fracture, intertrochanteric, right femur, closed, initial encounter (2) Diabetes: (3) HTN (hypertension): Qualified Code: I10 - Essential hypertension (4) Atrial fibrillation: Qualified Code: I48.0 - Paroxysmal atrial fibrillation Butch Martin Oct 16, 2016 16:15 Jonh Kilgore MD Oct 24, 2016 00:08
[2016-10-16 16:55] VITALS: BP_SYST 109; BP_SYST 96; BP_DIAS 51; BP_DIAS 66; PULSE 80; PULSE 82; RESP 18; TEMP 96.6; TEMP 97; O2SAT 96
[2016-10-16 20:00] VITALS: BP 93/55; PULSE 85; PULSE 91; RESP 18; TEMP 96; O2SAT 94
[2016-10-16] MEDS: TAMSULOSIN HCL 0.4 MG CAP PO SCH (20:44)
[2016-10-16] MEDS: ATORVASTATIN 40 MG TAB PO SCH (20:44)
[2016-10-16] MEDS ORDERED: CARVEDILOL 6.25 MG TAB PO SCH (21:00)
[2016-10-17] VITALS (7 sets, daily range): BP systolic 92–110; BP diastolic 56–69; PULSE 61–94; RESP 18–20; TEMP 96.4–97; O2SAT 94–95
[2016-10-17] MEDS: LACTATED RINGER'S 1000 ML INJ 1,000 ML IV SCH (00:03)
[2016-10-17 02:44] LABS: BLOOD, URINE NEG (NEG); COMMENT (UR) CULT NOT INDICATED; CULTURE IF INDICATED CULT NOT INDICATED; GLUCOSE,URINE NEG (NEG); KETONE, URINE NEG (NEG); MUCUS URINE FEW /lpf (OCC); NITRITE,URINE NEG (NEG); PH, URINE 7.5 (5.0-8.5); URINE COLOR YELLOW (YELLW/STRAW)
[2016-10-17] MEDS: INSULIN ASPART SUPPLEMENTAL SCALE SQ SCH ×3 (06:20→16:00)
[2016-10-17] MEDS: ACETAMINOPHEN/HYDROcodone 325 MG/5 MG TAB PO PRN ×3 (08:00→11:15)
--- NOTE | 2016-10-17 08:53 | PD.ORT.PN ---
Subjective Subjective Remarks pt has continued right hip pain with weight bearing ambulation discharge held yesterday due to hypotension Objective Vitals Vital Signs Date Time Temp Pulse Resp B/P Pulse Ox O2 Delivery O2 Flow Rate FiO2 10/17/16 08:43 96.7 76 18 108/67 95 10/17/16 04:00 97.0 94 20 108/68 94 10/17/16 00:00 96.5 83 20 110/69 94 10/16/16 20:00 96.0 85 18 93/55 94 10/16/16 20:00 91 10/16/16 16:55 96.6 82 18 96/51 96 10/16/16 12:26 96.5 72 18 89/54 92 I/O 10/16/16 10/16/16 10/16/16 10/17/16 10/17/16 10/17/16 07:00 15:00 23:00 07:00 15:00 23:00 Intake Total 240 ml 240 ml 0 ml Output Total 400 ml Balance -400 ml 240 ml 240 ml 0 ml Intake Oral 240 ml 240 ml 0 ml Output Urine Total 400 ml # Voids 3 1 0 # Bowel Movements 1 0 0 Result Diagram: 10/16/16 0814 10/16/16 0814 Imaging Last 48 hours Impressions Hip X-Ray 10/14/16 0000 Signed Impressions: Service Date/Time: October 21:12 - CONCLUSION: Interim nail and altaf fixation of the right intertrochanteric fracture. Alignment is near-anatomic. Owen Velasco MD Procedures Trochanteric nail fixation right proximal femur fracture (10/15/16) Objective Remarks seen by Dr. Anuel Clinton RLE: Dressing dry and intact. 2+ pedal pulses. Sensation intact. No calf pain. Negative Apurva's. Neurovascular intact. Assessment & Plan Problem List: (1) Aortic valve stenosis with insufficiency (2) Diabetes mellitus (3) Hyperlipemia (4) Hypertension (5) hx afib (6) Diastolic CHF due to valvular disease (7) Pneumomediastinum (8) Fracture, intertrochanteric, right femur (9) S/P AVR (aortic valve replacement) Assessment and Plan Ortho status stable POD #3 right hip ORIF Continue Eliquis for DVT prophylaxis, pain management and bowel management. discharge was held yesterday due to hypotension , january be discharged today if medically cleared f/u with Dr. Marilyn Pruitt,Eboni JAIME Oct 17, 2016 08:53
[2016-10-17] MEDS: APIXABAN 5 MG TABLET PO SCH ×2 (09:00→09:29)
[2016-10-17] MEDS: SODIUM CHLORIDE 0.9% FLUSH 5 ML FLUSH IVF SCH (09:00)
[2016-10-17] MEDS: DOCUSATE SODIUM 100 MG CAP PO SCH (09:27)
[2016-10-17] MEDS: POTASSIUM CHLORIDE 20 MEQ CONTROLLED RELEASE TAB PO SCH (09:27)
[2016-10-17] MEDS: MULTIVITAMINS/MINERALS THERAPEUTIC TAB PO SCH (09:28)
[2016-10-17] MEDS: FAMOTIDINE 20 MG TAB PO SCH (09:28)
[2016-10-17] MEDS ORDERED: SODIUM CHLOR 0.9% 250 ML INJ 250 ML IV ONE (15:15)
--- NOTE | 2016-10-17 16:18 | HHI.PR ---
Subjective Remarks Follow-up for hypotension and hip fracture. Patient's BP is little bit better today, but still low. His blood pressure dropped the first evening to [place] today. He denies any dizziness or lightheadedness. Has follow-up appointments with PCP and cardiothoracic surgeon in the next 2 weeks. Objective Vitals Vital Signs Date Time Temp Pulse Resp B/P Pulse Ox O2 Delivery O2 Flow Rate FiO2 10/17/16 16:08 96.4 61 18 94/61 95 10/17/16 12:54 96.8 86 18 92/56 94 10/17/16 08:43 96.7 76 18 108/67 95 10/17/16 08:00 86 10/17/16 08:00 86 10/17/16 04:00 97.0 94 20 108/68 94 10/17/16 00:00 96.5 83 20 110/69 94 10/16/16 20:00 96.0 85 18 93/55 94 10/16/16 20:00 91 10/16/16 16:55 96.6 82 18 96/51 96 I/O 10/16/16 10/16/16 10/16/16 10/17/16 10/17/16 10/17/16 07:00 15:00 23:00 07:00 15:00 23:00 Intake Total 240 ml 240 ml 0 ml Output Total 400 ml Balance -400 ml 240 ml 240 ml 0 ml Intake Oral 240 ml 240 ml 0 ml Output Urine Total 400 ml # Voids 3 1 0 # Bowel Movements 1 0 0 Result Diagram: 10/16/16 0814 10/16/16 0814 Imaging Last Impressions Hip X-Ray 10/14/16 0000 Signed Impressions: Service Date/Time: October 21:12 - CONCLUSION: Interim nail and altaf fixation of the right intertrochanteric fracture. Alignment is near-anatomic. Owen Velasco MD Hip and Pelvis X-Ray 10/12/16 0000 Signed Impressions: Service Date/Time: Wednesday, October 12, 2016 22:59 - CONCLUSION: Intertrochanteric fracture of the proximal right femur with mild medial angulation deformity. Owen Velasco MD Objective Remarks GENERAL: Well-developed well-nourished. In no acute distress. SKIN: Subcutaneous emphysema chest and bilateral upper extremities. HEENT: Normocephalic. Pupils equal and round. Mucous membranes pink and moist. CARDIOVASCULAR: Regular rate and rhythm. No murmur appreciated. RESPIRATORY: No accessory muscle use. Clear to auscultation. Breath sounds equal bilaterally. GASTROINTESTINAL: Abdomen soft, non-tender, nondistended. Bowel sounds x4. MUSCULOSKELETAL: No obvious deformities. No clubbing or cyanosis. No edema. NEUROLOGICAL: Awake and alert. No focal neurological deficits. Moves upper and lower extremities spontaneously. Normal speech. PSYCHIATRIC: Appropriate mood and affect; insight and judgment normal. A/P Problem List: (1) Fracture, intertrochanteric, right femur ICD Code: S72.141A Status: Acute (2) S/P AVR (aortic valve replacement) ICD Code: Z95.2 Status: Acute (3) Hyperlipidemia ICD Code: E78.5 Status: Chronic (4) Diabetes ICD Code: E11.9 Status: Chronic (5) HTN (hypertension) ICD Code: I10 Status: Chronic (6) COPD (chronic obstructive pulmonary disease) ICD Code: J44.9 Status: Acute (7) Atrial fibrillation ICD Code: I48.91 Status: Chronic (8) Hypotension ICD Code: I95.9 Status: Acute Assessment and Plan 76-year-old male with: Intertrochanteric fracture right femur: Orthopedics consulted, performed trochanteric nail fixation right proximal femur fracture 10/14/16. Cleared by orthopedics for DC. Continue pain control with [place] as needed, will decrease dose with hypotension. Status post recent aortic valve replacement: CT surgery consulted and cleared patient for orthopedic procedure as above. Atrial fibrillation: Was heparin bridged prior to surgery, DC'd heparin. Continue Eliquis. Hypotension: BP low, suspect secondary to overmedication with [place] and improve cardiac function from recent AVR. Holding carvedilol, Ramipril, Imdur, Lasix. Give gentle 250 cc IVF. Asymptomatic. If BP is improved, can follow-up with PCP and cardiothoracic surgeon to reintroduce medications as tolerated if needed. Diabetes mellitus: Covered with sliding scale and monitor with Accu-Cheks. Written by Butch Martin, acting as scribe for Dr. Estrada on 10/17/16 at 16:17. Discharge Planning Possible discharge later today if BP is improved. Attending Statement The documentation accurately reflects the work performed [id number] by me on 10/17/16 at 16:17. Problem Qualifiers (1) Fracture, intertrochanteric, right femur: Qualified Code: S72.141A - Fracture, intertrochanteric, right femur, closed, initial encounter (2) Diabetes: (3) HTN (hypertension): Qualified Code: I10 - Essential hypertension (4) Atrial fibrillation: Qualified Code: I48.0 - Paroxysmal atrial fibrillation Butch Martin Oct 17, 2016 16:18 Jonh Kilgore MD Oct 26, 2016 13:25
[2016-10-17] MEDS ORDERED: HYDR-3516 PO (16:57)
--- NOTE | 2016-10-17 17:07 | HHI.DS ---
Discharge Summary Admission Date Oct 12, 2016 at 22:23 Discharge Date: Oct 17, 2016 Admitting Diagnosis Pneumomediastinum and right intertrochanteric fracture (1) Fracture, intertrochanteric, right femur ICD Code: S72.141A Diagnosis: Principal (2) S/P AVR (aortic valve replacement) ICD Code: Z95.2 Diagnosis: Principal (3) Hyperlipidemia ICD Code: E78.5 Diagnosis: Secondary (4) Diabetes ICD Code: E11.9 Diagnosis: Secondary (5) HTN (hypertension) ICD Code: I10 Diagnosis: Secondary (6) COPD (chronic obstructive pulmonary disease) ICD Code: J44.9 Diagnosis: Secondary (7) Atrial fibrillation ICD Code: I48.91 Diagnosis: Secondary (8) Hypotension ICD Code: I95.9 Diagnosis: Secondary Procedures Trochanteric nail fixation right proximal femur fracture 10/14/16 Brief History - From Admission This patient, ER physician communication, and transfer notes from [facility]. Patient reported that he had a recent aortic valve replacement here at our hospital. He stated he was feeling so good at home and was walking around and doing his garden work. However earlier yesterday, he states he somehow tripped and fell at his garden. He denies any loss of consciousness. Denies hitting his head. He denies any premonitory symptoms prior to the fall such as chest pain/ palpitations/dizziness/focal weakness. He noted that this is just a simple trip and fall. Patient presented to [facility]. Workup there revealed right intertrochanteric femoral neck fracture. Patient denies any recent fever/nausea/vomiting/diarrhea/urinary burning or pain on urination. He denies any hematemesis/hematochezia/melena/hematuria. He reports he is on eliquis. Patient also was found to have large subcutaneous emphysema and pneumomediastinum on his CT chest. He was therefore transferred here to our hospital to the care of his cardiovascular surgeon. However patient himself reported to me that his subcutaneous emphysema had significantly improved. He stated that at one point post aortic valve surgery, he did have swelling a of all his subcutaneous tissues all the way up to his neck and face. He stated this has improved much and now the crepitations are mainly at his chest and extremities. CBC/BMP: 10/16/16 0814 10/16/16 0814 Significant Findings Laboratory Tests Test 10/15/16 10/16/16 10/17/16 06:06 08:14 02:30 White Blood Count 11.7 TH/MM3 11.5 TH/MM3 (4.0-11.0) (4.0-11.0) Red Blood Count 4.20 MIL/MM3 3.87 MIL/MM3 (4.50-5.90) (4.50-5.90) Hemoglobin 12.4 GM/DL 11.2 GM/DL (13.0-17.0) (13.0-17.0) Hematocrit 36.8 % 34.1 % (39.0-51.0) (39.0-51.0) Neutrophils (%) (Auto) 95.3 % 84.4 % (16.0-70.0) (16.0-70.0) Lymphocytes (%) (Auto) 2.9 % 7.2 % (9.0-44.0) (9.0-44.0) Neutrophils # (Auto) 11.1 TH/MM3 9.7 TH/MM3 (1.8-7.7) (1.8-7.7) Lymphocytes # (Auto) 0.3 TH/MM3 0.8 TH/MM3 (1.0-4.8) (1.0-4.8) Estimat Glomerular Filtration 75 ML/MIN (>89) 62 ML/MIN (>89) Rate Random Glucose 148 MG/DL 114 MG/DL (74-106) (74-106) Calcium Level 8.2 MG/DL 8.0 MG/DL (8.5-10.1) (8.5-10.1) Total Protein 5.8 GM/DL 5.7 GM/DL (6.4-8.2) (6.4-8.2) Albumin 2.4 GM/DL 2.5 GM/DL (3.4-5.0) (3.4-5.0) Blood Urea Nitrogen 23 MG/DL (7-18) Phosphorus Level 2.2 MG/DL (2.5-4.9) Urine Turbidity HAZY (CLEAR) Urine RBC 5 /hpf (0-3) Urine Mucus FEW /lpf (OCC) Imaging Last Impressions Hip X-Ray 10/14/16 0000 Signed Impressions: Service Date/Time: October 21:12 - CONCLUSION: Interim nail and altaf fixation of the right intertrochanteric fracture. Alignment is near-anatomic. Owen Velasco MD Hip and Pelvis X-Ray 10/12/16 0000 Signed Impressions: Service Date/Time: Wednesday, October 12, 2016 22:59 - CONCLUSION: Intertrochanteric fracture of the proximal right femur with mild medial angulation deformity. Owen Velasco MD PE at Discharge GENERAL: Well-developed well-nourished. In no acute distress. SKIN: Subcutaneous emphysema chest and bilateral upper extremities. HEENT: Normocephalic. Pupils equal and round. Mucous membranes pink and moist. CARDIOVASCULAR: Regular rate and rhythm. No murmur appreciated. RESPIRATORY: No accessory muscle use. Clear to auscultation. Breath sounds equal bilaterally. GASTROINTESTINAL: Abdomen soft, non-tender, nondistended. Bowel sounds x4. MUSCULOSKELETAL: No obvious deformities. No clubbing or cyanosis. No edema. NEUROLOGICAL: Awake and alert. No focal neurological deficits. Moves upper and lower extremities spontaneously. Normal speech. PSYCHIATRIC: Appropriate mood and affect; insight and judgment normal. Hospital Course 76-year-old male with: Intertrochanteric fracture right femur: Orthopedics consulted, performed trochanteric nail fixation right proximal femur fracture 10/14/16. Cleared by orthopedics for DC. Continue pain control with [place] as needed. Status post recent aortic valve replacement: CT surgery consulted and cleared patient for orthopedic procedure as above. Continue outpatient CT surgery follow-up. Atrial fibrillation: Was heparin bridged prior to surgery, DC'd heparin. Continue Eliquis. Hypotension: BP low, suspect secondary to overmedication with [place] and improve cardiac function from recent AVR. Holding carvedilol, Ramipril, Imdur, Lasix. BP improved. Asymptomatic. Recommended follow-up with PCP and cardiothoracic surgeon to reintroduce medications as tolerated if needed. Diabetes mellitus: Covered with sliding scale and monitor with Accu-Cheks. Resume home oral hypoglycemics and insulin regimen. Pt Condition on Discharge: Stable Discharge Disposition: Disch w/ Home Health Serv Discharge Time: > 30 minutes Discharge Instructions DIET: Follow Instructions for: Heart Healthy Diet, Diabetic Diet Activities you can perform: Weight Bearing as [place] Activities to Avoid: Lifting/Bending Follow up Referrals: [facility] Rocky Sanders MD PCP Follow-up - 1 Week New Medications: Walker with Front Wheels (Walker with Front Wheels) 1 Mis Mis 1 EA .ROUTE DIRECTED #1 Ref 0 EA Hydrocodone-Acetaminophen (Hydrocodone-Acetaminophen) 5-325 mg Tab 1 TAB PO Q4H PRN pain #30 TAB Continued Medications: Apixaban (Eliquis) 5 Mg Tab 5 MG PO BID Blood Clot Prevention #60 Ref 0 TAB Atorvastatin (Atorvastatin) 40 Mg Tab 40 MG PO HS Cholesterol Management #30 Ref 0 TAB Calcium Carbonate-Cholecalciferol (Calcium 1000 + D) 1,000-800 Mg-Unit Tab 1 TAB PO BID TAB Famotidine (Famotidine) 20 Mg Tab 20 MG PO DAILY #60 Ref 0 TAB Fluticasone-Vilanterol Inh (Breo Ellipta Inh) 100-25 Mcg/Act Inh 1 PUFF INH DAILY Use daily at the same time. #1 Ref 0 INHALER Metformin (Metformin) 1,000 Mg Tab 1000 MG PO BIDPC With meals Blood Sugar Management #60 Ref 0 TAB Multiple Vitamins W/ Minerals (Icaps) 1 Cap 1 CAP PO DAILY Nutritional Supplement Ref 0 CAP Nateglinide (Nateglinide) 120 Mg Tab 120 MG PO BID Blood Sugar Management #90 Ref 0 TAB Tamsulosin (Tamsulosin) 0.4 Mg Cap 0.4 MG PO HS Manage Prostate Problems #30 Ref 0 CAP Teriparatide (Recombinant) Inj (Forteo Inj) 600 Mcg/2.4 Ml Pen 20 MCG SQ DAILY Osteoporosis Ref 0 PEN Discontinued Medications: Carvedilol (Carvedilol) 6.25 Mg Tab 6.25 MG PO BID #60 Ref 0 TAB Furosemide (Furosemide) 40 Mg Tab 40 MG PO DAILY #30 Ref 0 TAB Isosorbide Mononitrate ER (Isosorbide Mononitrate ER) 30 Mg Ranulfo 30 MG PO DAILY Prevent Chest Pain #30 Ref 0 TAB Potassium Chloride ER (Potassium Chloride ER) 20 Meq Tab 20 MEQ PO DAILY Electrolyte Replacement #30 Ref 0 TAB Ramipril (Ramipril) 5 Mg Cap 5 MG PO DAILY #30 Ref 0 Butch Momin Oct 17, 2016 17:07
== END 2016-10-17 18:15 | disposition home or self-care (01) | DRG 481 ==
LOC: NEPA 21:34 → NEDA 22:23 → NEDH 10-13 03:21 → N05B 10-13 17:36
PROVIDERS: ADMIT Hospitalist; ATTEND Hospitalist
PROC: 0QS604Z Reposition Right Upper Femur with Internal Fixation Device, Open Approach (ICD-10-PCS; principal; 2016-10-14 20:41)
DX: S72.141A Displaced intertrochanteric fracture of right femur, initial encounter for closed fracture (principal); I50.32 Chronic diastolic (congestive) heart failure; I42.9 Cardiomyopathy, unspecified; T79.7XXA Traumatic subcutaneous emphysema, initial encounter; I48.2 Chronic atrial fibrillation; E11.9 Type 2 diabetes mellitus without complications; I35.2 Nonrheumatic aortic (valve) stenosis with insufficiency; I10 Essential (primary) hypertension; W18.09XA Striking against other object with subsequent fall, initial encounter; Y92.007 Garden or yard of unspecified non-institutional (private) residence as the place of occurrence of the external cause; E78.5 Hyperlipidemia, unspecified; Z79.01 Long term (current) use of anticoagulants; Z79.4 Long term (current) use of insulin; I48.0 Paroxysmal atrial fibrillation; J44.9 Chronic obstructive pulmonary disease, unspecified; M81.0 Age-related osteoporosis without current pathological fracture; Z87.891 Personal history of nicotine dependence; Z95.2 Presence of prosthetic heart valve
CPT/HCPCS: 73502; 76000; 80048; 80053; 81001; 82272; 82948; 83735; 84100; 85025; 85730; 93005; 94150; 99285; C1713; J0131; J0690; J1170; J1580; J1644; J1815; J2270; J2370; J2405; J7040; J7120; J7613